=== PATIENT | male | born 1960 | race Caucasian/White ===

== ENCOUNTER → 2016-09-24 | Outpatient (CLI) | payer BC ==
--- NOTE | 2016-09-24 12:24 | RAD ---
HISTORY: Lumbosacral neuritis Study: AP and lateral lumbar spine, flexion, extension views Comparison: March 08, 2015 Findings: The patient is status post L5-S1 fusion with posterior hardware present. There is slight anterolisth esis L4 on L5 when the patient is in the neutral position. This increases slightly with for flexion and decreases slightly with extension suggesting some instability. The alignment is otherwise normal . Degenerative disc disease is present at all levels. Anterior spondylosis is present at all levels. Diffuse bilateral facet degenerative joint disease is present. The pedicles are intact. The SI join ts are normal. IMPRESSION: Postsurgical changes at L5-S1 as described Degenerative disc disease involving all levels to some extent Slight anterolisthesis L4 on L5 secondary to facet degenerative joint disease and degenerative disc disease and demonstrating slight instability as described above Reported By:
--- NOTE | 2016-09-24 14:23 | CT ---
HISTORY: Low back pain, left radiculopathy Study: MRI lumbar spine without contrast Comparison: None Technique: Axial non contrast images with coronal and sagittal reformats. Dose reduction procedures were used with MA/kv adjusted for body size. Findings: The patient is status post L5-S1 posterior fusion with hardware present. There is mild anterolisthes is L4 on L5. The alignment is otherwise normal. Diffuse spondylosis is present in the upper and mid lumbar spine. The pedicles, spinous processes, and posterior elements are intact with the exception of what appears to be a left laminectomy at L4-5. Those portions of the SI joints and sacrum visuali zed were within normal limits. The disc levels were evaluated as follows: L1-2 level: There is disc degeneration with mild broad-based disc bulging which effaces the thecal s ac and contributes along with facet arthropathy to mild lateral recess narrowing bilaterally. L2-3 level: There is disc degeneration and broad-based disc bulging which effaces the thecal sac and contributes along with mild facet arthropathy to lateral recess and foraminal narrowing bilaterally . L3-4 level: There is disc degeneration with broad-based disc protrusion which effaces the thecal sac and contributes along with mild facet arthropathy and spondylitic change to significant lateral rec ess and foraminal narrowing bilaterally slightly worse on the right than the left L4-5 level: There is disc degeneration with anterolisthesis L4 on L5. The anterolisthesis and broad- based disc protrusion contributes along with ligamentous hypertrophy and facet arthropathy to a sign ificant spinal stenosis with marked lateral recess and foraminal narrowing bilaterally. L5-S1 level: Status post posterior fusion. Mild broad-based disk bulging effaces the thecal sac and contributes along with facet arthropathy and spondylitic change to lateral recess and foraminal narr owing of a significant degree bilaterally. IMPRESSION: As above Reported By:
== END | disposition home or self-care (01) | DRG 552 ==
LOC: RAD 10:40
PROVIDERS: ATTEND Neurological Surgery
DX: M51.26 Other intervertebral disc displacement, lumbar region (principal); M54.16 Radiculopathy, lumbar region
CPT/HCPCS: 72120; 72131

== ENCOUNTER → 2016-11-21 | Outpatient (CLI) | payer BC ==
--- NOTE | 2016-11-21 15:26 | US ---
HISTORY: Right renal lesion Study: Bilateral renal sonogram Comparison: None available Technique: Multiple grayscale sonographic images were obtained. Findings: The right kidney measured 12 centimeters in length. The left kidney measured 12 centimeters in lengt h. Cortical thickness and cortical echogenicity were normal bilaterally. No solid masses, hydronephr osis, stones, or perinephric fluid collections were identified. There are 2 benign renal cysts prese nt measuring 2.7 and 3.4 centimeters in diameter. Smaller benign cortical cysts are present on the l eft. IMPRESSION: Bilateral multiple benign renal cortical cysts. Reported By:
== END | disposition home or self-care (01) ==
LOC: RAD 14:01
PROVIDERS: ATTEND Specialist
DX: N28.89 Other specified disorders of kidney and ureter (principal); N28.1 Cyst of kidney, acquired
CPT/HCPCS: 76770

== ENCOUNTER 2020-01-24 11:50 | Observation (INO) ==
[2020-01-24 15:40] LABS: BASOPHILS % (AUTO) 0.3 % (0.2-1.0); EOSINOPHILS % (AUTO) 0.3 % (0.9-2.9); HEMATOCRIT 38.3 % (42.0-54.0); HEMOGLOBIN 13.1 g/dL (13.5-18.0); LYMPHOCYTES # (AUTO) 0.8 X10^3/uL (1.3-2.9); LYMPHOCYTES % (AUTO) 14.9 % (21.0-51.0); MEAN CORPUSCULAR HEMOGLOBIN 33.7 pg (27.0-34.0); MEAN CORPUSCULAR HGB CONC 34.3 g/dL (33.0-35.0); MEAN CORPUSCULAR VOLUME 98.3 fL (80.0-100.0); MEAN PLATELET VOLUME 8.5 fL (7.4-11.0); MONOCYTES # (AUTO) 0.6 x10^3/uL (0.3-0.8); MONOCYTES % (AUTO) 10.3 % (0.0-13.0); NEUTROPHILS % (AUTO) 74.2 % (42.0-75.0); PLATELET COUNT 157 X10^3/uL (150.0-450.0); RED CELL DISTRIBUTION WIDTH 12.5 % (11.6-16.5); WHITE BLOOD COUNT 5.4 X10^3/uL (3.6-10.0)
[2020-01-24 15:51] LABS: ALANINE AMINOTRANSFERASE 111 Units/L (12-78); ALBUMIN 3.6 g/dL (3.4-5.0); ALKALINE PHOSPHATASE 59 Units/L (46-116); ASPARTATE AMINO TRANSFERASE 138 Units/L (15-37); BLOOD UREA NITROGEN 22 mg/dL (7-18); CARBON DIOXIDE 28.3 mmol/L (21-32); CHLORIDE 96 mmol/L (98-107); COR NA(FOR HYPERGLY) 135 mmol/L (136-145); CREATININE 1.35 mg/dL (0.70-1.30); SODIUM 134 mmol/L (136-145); TOTAL PROTEIN 7.2 g/dL (6.4-8.2); eGFR NON BLACK RACES 58 (>60)
[2020-01-24] MEDS ORDERED: PROTONIX INJ 40 MG VIAL ONE (16:17)
[2020-01-24] MEDS ORDERED: NS 1000 ML 1,000 ML ONE (16:17)
[2020-01-24] MEDS: NS 1000 ML 1,000 ML IV ONE ×2 (16:22→17:39)
[2020-01-24] MEDS: PROTONIX INJ 40 MG VIAL IVP SCH ×2 (16:22→22:05)
--- NOTE | 2020-01-24 16:29 | RAD ---
HISTORYABDOMINAL PAIN, N/V BACK SURGERYSTUDYKUBCOMPARISONNoneFINDINGSEvaluation of the abdomen demonstrates a nonspecific bowel gas p attern. Portions of the kidneys are obscured by overlying bowel content. Calcifications within the pe lvis may reflect phleboliths however distal ureteral stones cannot entirely be excluded. Postoperativ e changes of the lumbar spine are noted.IMPRESSIONNonspecific bowel gas pattern.Electronically signed by: ROEL QUIROGA (Jan 24, 2020 16:28:48)
[2020-01-24 16:39] LABS: BILIRUBIN,URINE NEGATIVE (NEGATIVE); BLOOD/HEMOGLOBIN,URINE NEGATIVE (NEGATIVE); GLUCOSE, URINE NEGATIVE (NEGATIVE); KETONES,URINE 3+ (NEGATIVE); LEUKOCYTE ESTERASE ,URINE NEGATIVE (NEGATIVE); NITRITES,URINE NEGATIVE (NEGATIVE); PROTEIN,URINE 1+ (NEGATIVE); UROBILINOGEN,URINE NORMAL (NORMAL)
[2020-01-24 16:49] LABS: APPEARANCE,URINE CLEAR (CLEAR); COLOR,URINE YELLOW (YELLOW)
[2020-01-24 16:50] LABS: BACTERIA,URINE NEGATIVE /HPF (NEGATIVE); RBC,URINE NONE SEEN /HPF (0-3); SQUAMOUS EPITHELIAL CELL,UR RARE /HPF (NEGATIVE)
[2020-01-24 16:51] LABS: MUCUS,URINE FEW /HPF (NEGATIVE)
[2020-01-24] MEDS ORDERED: LEVSIN/MAALOX/LIDOC VISC ONE (16:57)
[2020-01-24] MEDS ORDERED: XANAX PO PRN (17:24)
[2020-01-24] MEDS: LEVSIN/MAALOX/LIDOC VISC PO SCH ×2 (17:38→21:17)
[2020-01-24 19:02] VITALS: BMI 24.9
[2020-01-24 19:05] LABS: CKMB % 1.2 % (<4); TROPONIN I 0.02 ng/mL (0-1.5)
[2020-01-24 19:08] LABS: CREATINE KINASE MB 4.6 ng/mL (0-4.0)
[2020-01-24] MEDS ORDERED: PEPCID 20 MG IV PREMIX* 20 MG/50 ML BAG IV ONE (19:54)
[2020-01-24] MEDS: PEPCID 20 MG IV PREMIX* 20 MG/50 ML BAG IV SCH (21:17)
[2020-01-25] MEDS ORDERED: NS 1000 ML 1,000 ML ONE ×2 (02:52→14:41)
[2020-01-25 02:57] LABS: CKMB % 1.3 % (<4); CREATINE KINASE MB 3.7 ng/mL (0-4.0); TROPONIN I 0.05 ng/mL (0-1.5)
[2020-01-25 06:35] LABS: BASOPHILS % (AUTO) 0.4 % (0.2-1.0); EOSINOPHILS % (AUTO) 1.1 % (0.9-2.9); HEMATOCRIT 35.8 % (42.0-54.0); HEMOGLOBIN 12.1 g/dL (13.5-18.0); LYMPHOCYTES # (AUTO) 0.6 X10^3/uL (1.3-2.9); LYMPHOCYTES % (AUTO) 13.2 % (21.0-51.0); MEAN CORPUSCULAR HEMOGLOBIN 33.5 pg (27.0-34.0); MEAN CORPUSCULAR HGB CONC 33.9 g/dL (33.0-35.0); MEAN CORPUSCULAR VOLUME 98.8 fL (80.0-100.0); MEAN PLATELET VOLUME 8.3 fL (7.4-11.0); MONOCYTES # (AUTO) 0.4 x10^3/uL (0.3-0.8); MONOCYTES % (AUTO) 9.8 % (0.0-13.0); NEUTROPHILS # (AUTO) 3.4 x10^3/uL (2.2-4.8); NEUTROPHILS % (AUTO) 75.5 % (42.0-75.0); PLATELET COUNT 132 X10^3/uL (150.0-450.0); RED BLOOD COUNT 3.62 X10^6/uL (4.7-6.0); RED CELL DISTRIBUTION WIDTH 12.6 % (11.6-16.5); WHITE BLOOD COUNT 4.5 X10^3/uL (3.6-10.0)
[2020-01-25 06:50] LABS: ALANINE AMINOTRANSFERASE 91 Units/L (12-78); ALBUMIN 3.2 g/dL (3.4-5.0); ALKALINE PHOSPHATASE 49 Units/L (46-116); ASPARTATE AMINO TRANSFERASE 102 Units/L (15-37); BLOOD UREA NITROGEN 23 mg/dL (7-18); CALCIUM 9.5 mg/dL (8.5-10.1); CARBON DIOXIDE 28.1 mmol/L (21-32); CHLORIDE 101 mmol/L (98-107); COR CA(FOR HYPOALB) 10.1 mg/dL (8.5-10.1); CREATININE 1.34 mg/dL (0.70-1.30); SODIUM 137 mmol/L (136-145); TOTAL PROTEIN 6.4 g/dL (6.4-8.2); eGFR NON BLACK RACES 58 (>60)
[2020-01-25] MEDS: PEPCID 20 MG IV PREMIX* 20 MG/50 ML BAG IV SCH (08:17)
[2020-01-25] MEDS: LEVSIN/MAALOX/LIDOC VISC PO SCH ×3 (08:18→15:40)
[2020-01-25] MEDS: PROTONIX INJ 40 MG VIAL IVP SCH (08:18)
[2020-01-25] MEDS ORDERED: ZOFRAN INJ 4 MG VIAL IVP PRN (10:39)
--- NOTE | 2020-01-25 10:43 | DR.H&P ---
H&P - History & Physical for Day of: H&P Date: 01/24/20 - Chief Complaint Chief Complaint: SEVERE EPIGASTRIC ABDOMINAL PAIN, INTRACTABLE NAUSEA AND VOMITING, INTRACTABLE HICCUPS, MELANOTIC STOOLS - History of Present Illness History of Present Illness: SEVERE EPIGASTRIC ABDOMINAL PAIN, INTRACTABLE NAUSEA AND VOMITING, INTRACTABLE HICCUPS, MELANOTIC STOOLS - Past Medical History Past Medical History: GERD, Hypertension - Past Surgical History Surgical History: Joint Replacement, Ortho Surgery - Family History Family Medical History: Cancer, Hypertension - Social History Does patient currently use any type of tobacco product: No Have you used tobacco products in the last 12 months: Yes Type of Tobacco Use: Smokeless Does any household member use tobacco: No Alcohol Use: None Drug Use: None - Medications Home Medications: No Known Drug Allergies Allergy (Verified 01/24/20 16:30) CONTINUE taking the following medications aspirin 325 mg PO DAILY 01/24/20 [History] fexofenadine 180 mg PO HS 01/24/20 [History] fluticasone propionate 2 spray INTRANASAL BID 01/24/20 [History] gabapentin 300 mg PO TID 01/24/20 [History] losartan 100 mg PO DAILY 01/24/20 [History] kx-zhop-tstpv-lycopene-ginkgo [One Daily For Men 50+ Advanced] 1 tab PO DAILY 01/24/20 [History] quinapril-hydrochlorothiazide 1 tab PO DAILY 01/24/20 [History] simvastatin 20 mg PO HS 01/24/20 [History] thioridazine 25 mg PO BID 01/24/20 [History] - Review of Systems Constitutional: See HPI, Weakness, Malaise, Other (WEIGHT LOSS ) Eyes: No Symptoms Reported ENT: No Symptoms Reported Respiratory: No Symptoms Reported Cardiovascular: No Symptoms Reported Gastrointestinal: See HPI, Nausea, Vomiting, Abdominal Pain, Melena Genitourinary: No Symptoms Reported Musculoskeletal: No Symptoms Reported Skin: No Symptoms Reported Neurological: Weakness - Physical Exam Vital Signs: Temperature 98.1 F Pulse Rate [Left Brachial] 78 Respiratory Rate 20 Blood Pressure [Left Arm] 147/86 O2 Sat by Pulse Oximetry 99 Oriented: Normal Eyes: Normal Ear: Normal Nose: Normal Throat: Normal Respiratory: Diminished Throughout Cardiovascular: Normal : Normal Auscultation: Bowel Sounds: Normal Palpation: Normal Tenderness: Epigastric, Moderate. negative: Rebound, Guarding, Rigidity Skin: Normal Musculoskeletal: Normal Psychiatric: Normal Mood Description: Calm Affect: Normal Speech Pattern: Clear - Assessment/Plan (1) Epigastric pain Status: Acute Plan: ADMIT, PEPCID 20MG IV Q12H, PROTONIX 40MG IV Q12H, GI COCKTAIL 30ML PO QID, ZOFRAN 4MG IV Q4H PRN NAUSEA, AND XANAX 0.5MG TID PRN, OBTAIN ABDOMEN/PELVIS CT, OBTAIN LIVER US, HEPATITIS AND HEMOCHROMATOSIS PANEL (2) Intractable nausea and vomiting Status: Acute (3) Intractable hiccups Status: Acute (4) Complaint of melena Status: Acute (5) Weight loss, non-intentional Status: Acute - Allergies Allergies/Adverse Reactions: Allergies Allergy/AdvReac Type Severity Reaction Status Date / Time No Known Drug Allergies Allergy Verified 01/24/20 16:30
[2020-01-25 11:53] LABS: CKMB % 1.5 % (<4); CREATINE KINASE 235 Units/L (39-308); CREATINE KINASE MB 3.4 ng/mL (0-4.0); TROPONIN I < 0.02 ng/mL (0-1.5)
[2020-01-25] MEDS ORDERED: PATIENT'S HOME MEDICATION PO SCH (12:30)
--- NOTE | 2020-01-25 13:45 | US ---
HISTORYABD PAINSTUDYUltrasound of the liver and gallbladder and right upper quadrantCOMPARISONNoneFINDINGSThe right lobe of the liver measures 16.62 cm sagittal length without mass. There is fine increased echogenicity compatible with diffuse fatty infiltration. There is appropriate flow in the hepatic veins. The portal vein measures 15 .2 mm diameter. There is hepatopetal flow in the portal vein.The gallbladder is normal in size without wall thickening or stone or sludge. The common hepatic duct measures 3.7 mm diameter.The right kidney measures 12.94 x 5.86 by 5.2 cm with cortical thickness of 1.84 cm and a resistive index of 0.7. There is no right hydronephrosis. There are 2 hypoechoic rounded partially exophytic masses off the upper pole. The largest measures 1.85 cm diameter and the next largest measures 1.5 cm. Low level internal ankles are displayed. There is some acoustic enhancement.There is no free fluid. There is no aortic aneurysm.IMPRESSIONMildly dilated portal veins suggesting portal hypertension.Normal ultrasound of the gallbladderHypoechoic structures in the upper pole of the right kidney likely representing simple cysts.Electronically signed by: GILMA JERRY (Jan 25, 2020 13:44:05)
[2020-01-25] MEDS ORDERED: ATIVAN INJ 2 MG VIAL IVP ONE (14:00)
[2020-01-25] MEDS ORDERED: ATIVAN INJ 2 MG VIAL ONE (14:04)
[2020-01-25 15:39] VITALS: BP 147/83
--- NOTE | 2020-01-25 16:19 | CT ---
HISTORYN/V, ABD PAINSTUDYABDOMEN/PELVIS WITH CONCOMPARISONUltrasound same dayTECHNIQUEMultiple axial images of the abdomen and pelvis were obtained from the lung bases to the pubic symphysis after the administration of IV contrast. Dose reduction techniques including Automated Exposure Control (AEC) and adjustment of mA and kV were utilized.FINDINGSThe visualized portions of the lung bases are unremarkable . The liver demonstrates probable diffuse fatty infiltration. Again there is prominence of the portal vein measuring 15 mm which may be due to portal venous hypertension. There is no evidence for any thrombus. Small renal cysts are noted bilaterally. The solid organs are otherwise unremarkable in their contrast appearance.. The gallbladder is unremarkable in its CT appearance . No significant mesenteric lymphadenopathy or stranding can be observed. No free fluid or free air is seen within the abdomen. No bowel wall thickening or bowel dilatation is present. The colon is unremarkable. Specifically, there is no diverticulosis noted within the sigmoid colon. The appendix is normal. The urinary bladder is grossly unremarkable. The bony structures demonstrate degenerative and postsurgical changes of the spine.IMPRESSIONProbable fatty infiltration with some mild dilatation of the portal vein which may be on the basis of portal venous hypertension.Electronically signed by: FUNMI DOUGHERTY (Jan 25, 2020 16:18:24)
[2020-01-28 06:47] LABS: HEPATITIS B SURFACE ANTIGEN Negative (Negative)
[2020-02-02 13:16] LABS: C282Y NEGATIVE; H63D NEGATIVE; S65C NEGATIVE
== END 2020-01-25 15:55 | disposition home or self-care (01) ==
LOC: OBS → MED/SURG 16:29
PROVIDERS: ADMIT Internal Medicine; ATTEND Internal Medicine
DX: R10.13 Epigastric pain; R11.2 Nausea with vomiting, unspecified; K92.1 Melena; I95.89 Other hypotension; R06.6 Hiccough; R94.31 Abnormal electrocardiogram [ECG] [EKG]; Z20.828 Contact with and (suspected) exposure to other viral communicable diseases; R63.4 Abnormal weight loss; R97.0 Elevated carcinoembryonic antigen [CEA]; R10.84 Generalized abdominal pain

== ENCOUNTER 2023-04-25 15:18 | Inpatient (IN) ==
[2023-04-25] MEDS ORDERED: NS 1,000 ML IV 1,000 ML ONE ×3 (15:23→18:29)
[2023-04-25] MEDS ORDERED: NS 1,000 ML IV 1,000 ML IV ONE ×3 (15:31→18:28)
--- NOTE | 2023-04-25 15:38 | DR.GENAD ---
HPI Time Seen Time Seen by Provider: 04/25/23 15:38 Complaint/Symptoms Chief Complaint Doctors Comments: 62-year-old male brought in for evaluation. Patient having diarrhea last p.m., 9 episodes. Has had poor p.o. intake, has still been drinking alcohol. He is on a daily basis, heavily.. Was sent in for outpatient labs, found to have acute kidney injury, with a creatinine of 14, BUN of 78. Never had problems with her kidneys before. He states he is still urinating. He denies fever, chills, upper respiratory symptoms. Having abdominal pain, worse on the left side. Sharp, does not radiate. Patient little tremulous, did take a drink this a.m.. COVID-19 Coronavirus risk:travel/contact w/high risk person: No Has patient experienced Coronavirus symptoms: No Nurses notes reviewed Nurses Notes Review: Yes Source History Provided: Patient Mode of Arrival Mode of Arrival: Wheelchair PMH PMH Past Medical History: GERD and Hypertension Past Surgical History: Yes Surgical History: Joint Replacement and Ortho Surgery Family History Family Medical History: Cancer and Hypertension Social History Does patient currently use any type of tobacco product: No Alcohol Use: Heavy and DAILY Do you use any recreational Drugs:: No Travel Risk Coronavirus risk:travel/contact w/high risk person: No Has patient experienced Coronavirus symptoms: No ROS Review of Systems Constitutional: Weakness Eyes: No Symptoms Reported ENTM: No Symptoms Reported Respiratoy: No Symptoms Reported Cardiovascular: No Symptoms Reported Gastrointestinal/Abdominal: Abdominal Pain and Diarrhea Genitourinary: No Symptoms Reported Neurological: Weakness Musculoskeletal: No Symptoms Reported Integumentary: No Symptoms Reported Hematologic/Lymphatic: No Symptoms Reported All Other Systems: Reviewed and Negative PE Vital Signs Vitals: Vital Signs Temperature 98.2 F Pulse Rate 121 Respiratory Rate 36 Blood Pressure 174/97 O2 Sat by Pulse Oximetry 97 General General Appearance: Alert, In No Apparent Distress and Other (+ tremulous) Eyes Eye exam: PERRL and EOMI ENT ENT Exam: Normal Oropharynx and Mucous Membranes Moist Neck Neck Exam: Normal Inspection and Full ROM Respiratory Respiratory Exam: Normal Lung Sounds Bilat; negative Accessory Muscle Use or Respiratory Distress Cardiovascular Cardiovascular Exam: Regular Rate, Normal Rhythm, Tachycardia and Normal Heart Sounds Abdominal Exam Abdominal Exam: Normal Bowel Sounds, Soft and Tenderness (L side, no guarding or rebound.) Extremities Extremities Exam: Normal Inspection and Full ROM Neurologic Neurological Exam: Alert, Oriented X3 and CN II-XII Intact; negative Motor Sensory Deficit Skin Skin Exam: Warm and Dry COURSE Treatment Treatment: 8-year-old male with history of heavy EtOH usage, presents with acute renal injury. Has had poor p.o. intake, probably related to his alcohol usage. He developed diarrhea last p.m., has had about 9 episodes. We will repeat labs, start IV fluids. 1635 -BUN 79, creatinine 14.4 with EGFR of 3 bicarb is low at 15. PTH is only 19. CBC acceptable except for low platelets to 82,000. He has an MCV of 104. Patient given IV Ativan here. Will give additional IV fluids. Will obtain an ABG to evaluate his acidosis. His physician, Dr. Monique, called in to give a heads up on this patient, and would like him transferred to a facility with nephrology services. We will attempt transfer after obtaining studies. 1824 -labs, for the acute renal injury-BUN 79, creatinine 4.5. He also has markedly elevated lipase at 1852 bicarb low at 12.6. ABG obtained did acidotic with a pH of 7.27. Alcohol level only [address] abdomen/pelvis shows bilateral perinephric streaky changes, prostamegaly, some bladder wall thickening. Pancreas appears normal per radiology. Second liter of IV normal saline, and additional Ativan 1 mg. 1955 -discussed with Dr. Claudio, on-call for medicine tonight. He will admit the patient here tonight for continue IV hydration, does not appear to need acute dialysis. He will transfer to nephrology tomorrow if needed. [facility] Labs Reviewed 04/25/23 15:40 04/25/23 15:40 Laboratory: WBC 10.3 X10^3/uL (3.6-10.0) H 04/25/23 15:40 RBC 2.87 X10^6/uL (4.7-6.0) L 04/25/23 15:40 Hgb 10.0 g/dL (13.5-18.0) L 04/25/23 15:40 Hct 29.9 % (42.0-54.0) L 04/25/23 15:40 MCV 104.3 fL (80.0-100.0) H 04/25/23 15:40 MCH 35.0 pg (27.0-34.0) H 04/25/23 15:40 MCHC 33.6 g/dL (33.0-35.0) 04/25/23 15:40 RDW 15.8 % (11.6-16.5) 04/25/23 15:40 Plt Count 82 X10^3/uL (150.0-450.0) L 04/25/23 15:40 Plt Count Comment Decreased (ADEQUATE) 04/25/23 15:40 MPV 8.1 fL (7.4-11.0) 04/25/23 15:40 Neut % (Auto) 90.9 % (42.0-75.0) H 04/25/23 15:40 Lymph % (Auto) 3.0 % (21.0-51.0) L 04/25/23 15:40 [place] % (Auto) 5.8 % (0.0-13.0) 04/25/23 15:40 Eos % (Auto) 0.0 % (0.9-2.9) L 04/25/23 15:40 Baso % (Auto) 0.3 % (0.2-1.0) 04/25/23 15:40 Neut # (Auto) 9.4 x10^3/uL (2.2-4.8) H 04/25/23 15:40 Lymph # (Auto) 0.3 X10^3/uL (1.3-2.9) L 04/25/23 15:40 [place] # (Auto) 0.6 x10^3/uL (0.3-0.8) 04/25/23 15:40 Eos # (Auto) 0.0 x10^3/uL (0.0-0.2) 04/25/23 15:40 Baso # (Auto) 0.0 X10^3/uL (0.0-0.1) 04/25/23 15:40 Absolute Nucleated RBC 0.0 /100WBC 04/25/23 15:40 Total Counted 100 04/25/23 15:40 Neutrophils % (Manual) 89 % (39-76) H 04/25/23 15:40 Lymphocytes % (Manual) 8 % (13-43) L 04/25/23 15:40 Monocytes % (Manual) 3 % (4-9) L 04/25/23 15:40 Nucleated RBCs 2 04/25/23 15:40 Plt Morphology Comment Normal (NORMAL) 04/25/23 15:40 RBC Morphology Normal (NORMAL) 04/25/23 15:40 Sample Site Rr 04/25/23 16:26 ABG pH 7.270 (7.35-7.45) L 04/25/23 16:26 ABG pCO2 28.0 mmHg (35.0-45.0) L 04/25/23 16:26 ABG pO2 92.0 mmHg (80.0-100.0) 04/25/23 16: ABG HCO3 12.9 mmol/L (22-26) L* 04/25/23 16: ABG O2 Saturation 96.0 % (90-100) 04/25/23 16: ABG Base Excess -12.6 mmol/L (-2.0-2.0) L 04/25/23 16:26 Juan Test Pos 04/25/23 16:26 FiO2 21.0 04/25/23 16:26 Blood Gas Comments Autumn well. sd 04/25/23 16:26 Sodium 131 mmol/L (136-145) L 04/25/23 15:40 Corrected Sodium TNP 04/25/23 15:40 Potassium 5.5 mmol/L (3.5-5.1) H 04/25/23 15:40 Chloride 96 mmol/L (98-107) L 04/25/23 15:40 Carbon Dioxide 12.6 mmol/L (21-32) L* 04/25/23 15:40 BUN 79 mg/dL (7-18) H 04/25/23 15:40 Creatinine 14.47 mg/dL (0.70-1.30) H 04/25/23 15:40 Est GFR (MDRD) Af Amer 4 (>60) L 04/25/23 15:40 Est GFR (MDRD) Non-Af 4 (>60) L 04/25/23 15:40 Glucose 97 mg/dL (65-99) 04/25/23 15:40 Calcium 6.6 mg/dL (8.5-10.1) L 04/25/23 15:40 Corrected Calcium 7.2 mg/dL (8.5-10.1) L 04/25/23 15:40 Magnesium 1.8 mg/dL (2.0-2.9) L 04/25/23 15:39 Total Bilirubin 0.50 mg/dL (0.2-1.0) 04/25/23 15:40 AST 142 Units/L (15-37) H 04/25/23 15:40 ALT 54 Units/L (12-78) 04/25/23 15:40 Alkaline Phosphatase 61 Units/L (46-116) 04/25/23 15:40 Total Protein 7.1 g/dL (6.4-8.2) 04/25/23 15:40 Albumin 3.2 g/dL (3.4-5.0) L 04/25/23 15:40 Globulin 3.9 g/dL (2.5-4.5) 04/25/23 15:40 Albumin/Globulin Ratio 0.8 Ratio (1.1-2.1) L 04/25/23 15:40 Lipase 1852 Units/L (16-77) H 04/25/23 15:40 Vitamin B12 > 2000 pg/mL (193-986) H 04/25/23 15:39 Folate 3.5 ng/mL (>8.6) L 04/25/23 15:39 Specimen Type Clean catch urine 04/25/23 16:41 Urine Color Yellow (YELLOW) 04/25/23 16:41 Urine Appearance Slightly hazy (CLEAR) 04/25/23 16:41 Urine pH 6.0 (5.0 - 8.0) 04/25/23 16:41 Ur Specific [place] 1.015 (1.000-1.030) 04/25/23 16:41 Urine Protein 3+ (NEGATIVE) 04/25/23 16:41 Urine Glucose (UA) Negative (NEGATIVE) 04/25/23 16:41 Urine Ketones 1+ (NEGATIVE) 04/25/23 16:41 Urine Blood 5+ (NEGATIVE) 04/25/23 16:41 Urine Nitrite Negative (NEGATIVE) 04/25/23 16:41 Urine Bilirubin Negative (NEGATIVE) 04/25/23 16:41 Urine Urobilinogen Normal (NORMAL) 04/25/23 16:41 Ur Leukocyte Esterase 1+ (NEGATIVE) 04/25/23 16:41 Urine RBC 5-10 /HPF (0-3) A 04/25/23 16:41 Urine WBC 3-5 /HPF (0-5) 04/25/23 16:41 Ur Squamous Epith Cells Rare /HPF (NEGATIVE) 04/25/23 16:41 Amorphous Sediment 1+ /HPF (NEGATIVE) 04/25/23 16:41 Urine Bacteria Negative /HPF (NEGATIVE) 04/25/23 16:41 Coarse Granular Casts Few /HPF (NEGATIVE) 04/25/23 16:41 Urine Mucus Few /HPF (NEGATIVE) 04/25/23 16:41 Ur Culture Indicated? No/not indicated 04/25/23 16:41 Ethyl Alcohol mg/dL 19 mg/dL (0-19.9) 04/25/23 15:40 Ethyl Alcohol mg/dL Cancelled 04/25/23 15:40 Opioid Opioid Risk Tool Age (Eddie box if 16-45): No History of Preadolescent Sexual Abuse: No Total: 0 Total Score Risk Category: Low Risk Copyright: Ki CHEEMA predicting aberrant behaviors Discharge Plan Diagnosis Discharge Problem: Acute nontraumatic kidney injury, Acute pancreatitis, Alcohol abuse Discharge Plan Patient Disposition: 09 ADMITTED INPATIENT Condition: Stable Prescriptions: No Action thioridazine 25 mg tablet 25 mg PO BID aspirin 325 mg Tablet 325 mg PO DAILY fexofenadine 180 mg tablet 180 mg PO HS Patient Comments: TK 1 T PO QD simvastatin 20 mg tablet 20 mg PO HS gabapentin 300 mg capsule 300 mg PO TID quinapril-hydrochlorothiazide 20-12.5 mg Tablet 1 tab PO DAILY losartan 100 mg tablet 100 mg PO DAILY fluticasone propionate 50 mcg/actuation spray,suspension 2 spray INTRANASAL BID One Daily For Men 50 Plus Adv 400-600-120 mcg-mcg-mg Tablet 1 tab PO DAILY ondansetron HCl [Zofran] 8 mg Tablet 8 mg PO Q8H PRN (Reason: Nausea) Qty: 30 1RF famotidine [Pepcid] 40 MG tablet 40 mg PO BID Qty: 60 3RF Rx Instructions: TAKE ONE TABLET TWICE A DAY pantoprazole [pantoprazole] 40 MG tablet,delayed release (DR/EC) 40 mg PO BID Qty: 60 3RF Rx Instructions: TAKE ONE TABLET TWICE A DAY hyoscyamine sulfate 30 ML elixir 15 ml PO TID PRNQty: 240 1RF Rx Instructions: TAKE ONE TABLESPOON THREE TIMES A DAY NEEDED FOR ABDOMINAL PAIN dicyclomine 20 mg Tablet 20 mg PO QID Qty: 30 0RF Rx Instructions: TAKE ONE TABLET FOUR TIMES A DAY NEEDED FOR ABDOMINAL PAIN alprazolam 0.5 mg Tablet 0.5 mg PO BID MDD 2 PRNQty: 30 0RF Rx Instructions: TAKE ONE TABLET TWICE A DAY NEEDED FOR ANXIETY Health Concerns: Post Hospitalization: new medications and changes needed to prevent readmission or further decline. Pt educated and given instructions on all concerns. Plan of Treatment: Continue with present treatment and follow up plan. Pt is to keep follow up appointment as instructed and take medications as ordered. Orders to Discharge Patient Discharge Orders: Transfer (Routine); Ordered 04/25/23 Ordered By: Neptali Duggan Follow ups/Referrals Follow ups/Referrals: Johnathon Monique [Primary Care Provider] - 3 days
[2023-04-25 15:47] LABS: HEMATOCRIT 29.9 % (42.0-54.0); LYMPHOCYTES # (AUTO) 0.3 X10^3/uL (1.3-2.9); MEAN CORPUSCULAR HGB CONC 33.6 g/dL (33.0-35.0); MONOCYTES # (AUTO) 0.6 x10^3/uL (0.3-0.8); RED BLOOD COUNT 2.87 X10^6/uL (4.7-6.0)
[2023-04-25 15:54] LABS: BASOPHILS % (AUTO) 0.3 % (0.2-1.0); MEAN CORPUSCULAR VOLUME 104.3 fL (80.0-100.0); MEAN PLATELET VOLUME 8.1 fL (7.4-11.0); MONOCYTES % (AUTO) 5.8 % (0.0-13.0); NEUTROPHILS # (AUTO) 9.4 x10^3/uL (2.2-4.8); NEUTROPHILS % (AUTO) 90.9 % (42.0-75.0); PLATELET COUNT 82 X10^3/uL (150.0-450.0); RED CELL DISTRIBUTION WIDTH 15.8 % (11.6-16.5); WHITE BLOOD COUNT 10.3 X10^3/uL (3.6-10.0)
[2023-04-25 15:56] LABS: ALANINE AMINOTRANSFERASE 54 Units/L (12-78); ALBUMIN 3.2 g/dL (3.4-5.0); ALKALINE PHOSPHATASE 61 Units/L (46-116); ASPARTATE AMINO TRANSFERASE 142 Units/L (15-37); BLOOD ALCOHOL 19 mg/dL (0-19.9); BLOOD UREA NITROGEN 79 mg/dL (7-18); CALCIUM 6.6 mg/dL (8.5-10.1); CHLORIDE 96 mmol/L (98-107); COR CA(FOR HYPOALB) 7.2 mg/dL (8.5-10.1); CREATININE 14.47 mg/dL (0.70-1.30); GLUCOSE 97 mg/dL (65-99); POTASSIUM 5.5 mmol/L (3.5-5.1); SODIUM 131 mmol/L (136-145); TOTAL PROTEIN 7.1 g/dL (6.4-8.2); eGFR NON BLACK RACES 4 (>60)
[2023-04-25] MEDS ORDERED: ATIVAN INJ 2 MG VIAL IVP STA ×2 (16:30→18:28)
[2023-04-25 16:32] LABS: CARBON DIOXIDE 12.6 mmol/L (21-32); PLATELET MORPHOLOGY COMMENT NORMAL (NORMAL)
[2023-04-25] MEDS ORDERED: ATIVAN INJ 2 MG VIAL ONE ×2 (16:35→18:30)
[2023-04-25 16:46] LABS: ABG BASE EXCESS -12.6 mmol/L (-2.0-2.0)
[2023-04-25 16:51] LABS: ABG ALLEN TEST POS; ABG HCO3 12.9 mmol/L (22-26)
[2023-04-25 16:58] LABS: LIPASE 1852 Units/L (16-77)
[2023-04-25 16:59] LABS: APPEARANCE,URINE SLIGHTLY HAZY (CLEAR); BILIRUBIN,URINE NEGATIVE (NEGATIVE); BLOOD/HEMOGLOBIN,URINE 5+ (NEGATIVE); COLOR,URINE YELLOW (YELLOW); GLUCOSE, URINE NEGATIVE (NEGATIVE); KETONES,URINE 1+ (NEGATIVE); LEUKOCYTE ESTERASE ,URINE 1+ (NEGATIVE); NITRITES,URINE NEGATIVE (NEGATIVE); PROTEIN,URINE 3+ (NEGATIVE); UROBILINOGEN,URINE NORMAL (NORMAL)
[2023-04-25 17:06] LABS: BACTERIA,URINE NEGATIVE /HPF (NEGATIVE); SQUAMOUS EPITHELIAL CELL,UR RARE /HPF (NEGATIVE)
[2023-04-25 17:09] LABS: COARSE GRANULAR CASTS,URINE FEW /HPF (NEGATIVE)
--- NOTE | 2023-04-25 17:51 | CT ---
EXAM: CT ABDOMEN AND PELVIS WITHOUT INTRAVENOUS CONTRASTHISTORY: Abnormal labs. Weakness.TECHNIQUE: Spiral axial CT images are obtained through the abdomen and pelvis without the administration of intravenous contrast. Additional coronal and sagittal reformatted images are reconstructed.DOSIMETRY: Total DLP 331.33 mGycm; CTDI 5.88 mGyCOMPARISON: None available.FINDINGS:GASTROINTESTINAL TRACT: There is no evidence for bowel herniation, bowel obstruction, colitis or diverticulitis. A normal-appearing appendix is seen.GENITOURINARY SYSTEM: Nonspecific bilateral mild perinephric streaky changes, of uncertain etiology and clinical significance. Consider follow-up postcontrast CT if UTI or pyelonephritis is clinically suspected. There are approximately 3.5 cm and 2.7 cm exophytic right middle pole renal cysts. The kidneys are otherwise unremarkable. There is no ureteral calculus or stigmata of obstructive uropathy. There is prostatomegaly (4.9 cm transverse) in keeping with BPH; concomitant occult neoplastic disease not excluded. Mildly thickened appearance of the urinary bladder wall (8.5 mm), presumed sequela of incomplete bladder distention or chronic muscle wall hypertrophy secondary to chronic partial outlet obstruction, but cannot rule out postinflammatory change or cystitis in the appropriate clinical setting. Clinical correlation is advised.CT ABDOMEN: Diffuse hepatic steatosis with borderline hepatomegaly (right lobe measures 17.6 cm CC); rule out nonalcoholic steatosis hepatitis; no focal hepatic mass seen. The spleen, pancreas, adrenal glands, gallbladder, aorta, and inferior vena cava are within normal limits for a noncontrast CT scan. There is no intra-abdominal or retroperitoneal lymphadenopathy, free fluid, or free air seen. No abdominal herniation is noted.CT PELVIS: No pelvic sidewall or inguinal lymphadenopathy is seen. No inguinal herniation is noted. No free fluid or free air is seen.BONES AND JOINTS: There is severe multilevel DDD throughout the distal thoracic and lumbar spine. L4/5: Status post laminectomy and posterior lumbar spine fusion, with pedicle screws and stabilization rods in situ; approximately 6.5 mm (grade 1) spondylolisthesis (fused position). 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 Nonspecific mild bilateral perinephric streaky changes, of uncertain etiology and clinical significance. Consider follow-up postcontrast CT to rule out pyelonephritis if UTI is clinically suspected.2. No evidence for renal stone disease or obstructive uropathy.3. Prostatomegaly (4.9 cm transverse) in keeping with BPH; concomitant occult neoplastic disease not excluded.4. Mildly thickened appearance of the urinary bladder wall (8.5 mm), presumed sequela of incomplete bladder distention or chronic muscle wall hypertrophy secondary to chronic partial outlet obstruction, but cannot rule out postinflammatory change or cystitis in the appropriate clinical setting. Clinical correlation is advised.5. No evidence for acute appendicitis, bowel herniation/obstruction, colitis or diverticulitis seen.6. No free fluid, free air, mass lesions, or lymphadenopathy seen.THIS IS AN ELECTRONICALLY VERIFIED FINAL [id number]/25/2023 5:48 PM - Electronically signed by Carol Garza
[2023-04-25] MEDS ORDERED: CONSULT PHARMACY - POTASSIUM & MAGNESIUM XX SCH (21:17)
[2023-04-25] MEDS: D5 NS 1,000 ML IV 1,000 ML IV SCH (21:40)
[2023-04-25 22:23] VITALS: BMI 26.7
[2023-04-25] MEDS: MAGNESIUM SULFATE 1 GRAM/100 mL PREMIX 1 G/100 ML BAG IV SCH (22:41)
[2023-04-25] MEDS: ATIVAN INJ 2 MG VIAL IVP PRN (22:43)
[2023-04-26] MEDS: MAGNESIUM SULFATE 1 GRAM/100 mL PREMIX 1 G/100 ML BAG IV SCH (00:30)
[2023-04-26] MEDS: ATIVAN INJ 2 MG VIAL IVP PRN ×3 (03:25→12:25)
[2023-04-26 05:08] LABS: BASOPHILS % (AUTO) 0.1 % (0.2-1.0); HEMATOCRIT 27.4 % (42.0-54.0); HEMOGLOBIN 9.1 g/dL (13.5-18.0); LYMPHOCYTES # (AUTO) 0.4 X10^3/uL (1.3-2.9); MEAN CORPUSCULAR HEMOGLOBIN 34.7 pg (27.0-34.0); MEAN CORPUSCULAR HGB CONC 33.1 g/dL (33.0-35.0); MEAN CORPUSCULAR VOLUME 104.9 fL (80.0-100.0); MEAN PLATELET VOLUME 9.4 fL (7.4-11.0); MONOCYTES # (AUTO) 0.5 x10^3/uL (0.3-0.8); MONOCYTES % (AUTO) 8.9 % (0.0-13.0); PLATELET COUNT 67 X10^3/uL (150.0-450.0); RED BLOOD COUNT 2.61 X10^6/uL (4.7-6.0); RED CELL DISTRIBUTION WIDTH 15.7 % (11.6-16.5)
[2023-04-26 05:23] LABS: ALBUMIN 2.6 g/dL (3.4-5.0); CARBON DIOXIDE 15.2 mmol/L (21-32); CREATININE 13.95 mg/dL (0.70-1.30); TOTAL PROTEIN 5.9 g/dL (6.4-8.2)
[2023-04-26 05:40] LABS: COR CA(FOR HYPOALB) 6.9 mg/dL (8.5-10.1)
[2023-04-26 05:45] LABS: CALCIUM 5.8 mg/dL (8.5-10.1); POTASSIUM 5.1 mmol/L (3.5-5.1)
[2023-04-26] MEDS: D5 NS 1,000 ML IV 1,000 ML IV SCH ×2 (05:55→12:26)
[2023-04-26 08:09] LABS: CREATINE KINASE 2065 Units/L (39-308)
[2023-04-26 08:30] LABS: LIPASE 1514 Units/L (16-77)
[2023-04-26] MEDS: NS IV SCH (09:20)
[2023-04-26] MEDS: SODIUM BICARBONATE 8.4% IV SCH (09:20)
[2023-04-26 10:04] LABS: BILIRUBIN,URINE NEGATIVE (NEGATIVE); BLOOD/HEMOGLOBIN,URINE 5+ (NEGATIVE); GLUCOSE, URINE 2+ (NEGATIVE); KETONES,URINE NEGATIVE (NEGATIVE); LEUKOCYTE ESTERASE ,URINE 1+ (NEGATIVE); NITRITES,URINE NEGATIVE (NEGATIVE); PROTEIN,URINE 3+ (NEGATIVE); UROBILINOGEN,URINE NORMAL (NORMAL)
[2023-04-26 10:05] LABS: APPEARANCE,URINE SLIGHTLY HAZY (CLEAR); COLOR,URINE YELLOW (YELLOW)
[2023-04-26] MEDS ORDERED: BUTT CREAM (COMPOUND) ONE (10:25)
--- NOTE | 2023-04-26 11:57 | DR.H&P ---
H&P History & Physical for Day of: H&P Date: 04/25/23 Chief Complaint Chief Complaint: DIARRHEA, ABNROMAL OUTPT LABS Allergies Allergies Allergy/AdvReac Type Severity Reaction Status Date / Time No Known Drug Allergies Allergy Verified 01/24/20 16:30 History of Present Illness History of Present Illness: 62-year-old, White male with history of heavy EtOH usage, presents with acute renal injury. Has had poor p.o. intake. He developed diarrhea last p.m., has had about 9 episodes. We will repeat labs, start IV fluids. BUN 79, creatinine 14.4 with EGFR of 3 bicarb is low at 15. PTH is only 19. CBC acceptable except for low platelets to 82,000. He has an MCV of 104. Patient given IV Ativan here. His physician, Dr. Monique, called in to give a heads up on this patient, and would like him transferred to a facility with nephrology services. We will attempt transfer after obtaining studies. In the ER-labs, for the acute renal injury-BUN 79, creatinine 4.5. He also has markedly elevated lipase at 1852 bicarb low at 12.6. ABG obtained did acidotic with a pH of 7.27. Alcohol level only [address] abdomen/pelvis shows bilateral perinephric streaky changes, prostamegaly, some bladder wall thickening. Pancreas appears normal per radiology. Second liter of IV normal saline, and additional Ativan 1 mg. Pt has PMH of HTN, GERD, Past Medical History Past Medical History: Anxiety, Cirrhosis, COPD and Hypertension Past Surgical History Surgical History: Joint Replacement and Ortho Surgery Family History Family Medical History: Cancer, Heart Failure and Hypertension Social History Does patient currently use any type of tobacco product: No Have you used tobacco products in the last 12 months: No Type of Tobacco Use: None Alcohol Use: DAILY Drug Use: None Medications Home Medications: Home Medications Medication Instructions Recorded Confirmed Type gabapentin 300 mg capsule 300 mg PO TID 01/24/20 04/25/23 History losartan 100 mg tablet 100 mg PO DAILY 01/24/20 04/25/23 History thioridazine 25 mg tablet 50 mg PO 1XD 01/24/20 04/25/23 History diclofenac potassium 50 mg tablet 50 mg PO BID 04/25/23 04/25/23 History milk thistle 200 mg capsule 250 mg PO 1XD 04/25/23 04/25/23 History montelukast 10 mg tablet 10 mg PO QDAY 04/25/23 04/25/23 History omeprazole 20 mg tablet,delayed 20 mg PO QDAY 04/25/23 04/25/23 History release rosuvastatin 20 mg tablet 20 mg PO QPM 04/25/23 04/25/23 History tadalafil 5 mg tablet 5 mg PO QID 04/25/23 04/25/23 History Labs 04/26/23 04:16 04/26/23 04:16 Labs: 04/26/23 08:30 Stool - Final Laboratory WBC 6.0 X10^3/uL (3.6-10.0) 04/26/23 04:16 RBC 2.61 X10^6/uL (4.7-6.0) L 04/26/23 04:16 Hgb 9.1 g/dL (13.5-18.0) L 04/26/23 04:16 Hct 27.4 % (42.0-54.0) L 04/26/23 04:16 MCV 104.9 fL (80.0-100.0) H 04/26/23 04:16 MCH 34.7 pg (27.0-34.0) H 04/26/23 04:16 MCHC 33.1 g/dL (33.0-35.0) 04/26/23 04:16 RDW 15.7 % (11.6-16.5) 04/26/23 04:16 Plt Count 67 X10^3/uL (150.0-450.0) L 04/26/23 04:16 Plt Count Comment Decreased (ADEQUATE) 04/25/23 15:40 MPV 9.4 fL (7.4-11.0) 04/26/23 04:16 Neut % (Auto) 84.0 % (42.0-75.0) H 04/26/23 04:16 Lymph % (Auto) 7.0 % (21.0-51.0) L 04/26/23 04:16 [place] % (Auto) 8.9 % (0.0-13.0) 04/26/23 04:16 Eos % (Auto) 0.0 % (0.9-2.9) L 04/26/23 04:16 Baso % (Auto) 0.1 % (0.2-1.0) L 04/26/23 04:16 Neut # (Auto) 5.0 x10^3/uL (2.2-4.8) H 04/26/23 04:16 Lymph # (Auto) 0.4 X10^3/uL (1.3-2.9) L 04/26/23 04:16 [place] # (Auto) 0.5 x10^3/uL (0.3-0.8) 04/26/23 04:16 Eos # (Auto) 0.0 x10^3/uL (0.0-0.2) 04/26/23 04:16 Baso # (Auto) 0.0 X10^3/uL (0.0-0.1) 04/26/23 04:16 Absolute Nucleated RBC 0.0 /100WBC 04/26/23 04:16 Total Counted 100 04/25/23 15:40 Neutrophils % (Manual) 89 % (39-76) H 04/25/23 15:40 Lymphocytes % (Manual) 8 % (13-43) L 04/25/23 15:40 Monocytes % (Manual) 3 % (4-9) L 04/25/23 15:40 Nucleated RBCs 2 04/25/23 15:40 Plt Morphology Comment Normal (NORMAL) 04/25/23 15:40 RBC Morphology Normal (NORMAL) 04/25/23 15:40 Sample Site Rr 04/25/23 16:26 ABG pH 7.270 (7.35-7.45) L 04/25/23 16:26 ABG pCO2 28.0 mmHg (35.0-45.0) L 04/25/23 16:26 ABG pO2 92.0 mmHg (80.0-100.0) 04/25/23 16:26 ABG HCO3 12.9 mmol/L (22-26) L* 04/25/23 16:26 ABG O2 Saturation 96.0 % (90-100) 04/25/23 16:26 ABG Base Excess -12.6 mmol/L (-2.0-2.0) L 04/25/23 16:26 Juan Test Pos 04/25/23 16:26 A-a Gradient Not Reportable 04/25/23 16:26 FiO2 21.0 04/25/23 16:26 Blood Gas Comments Autumn well. sd 04/25/23 16:26 Sodium 132 mmol/L (136-145) L 04/26/23 04:16 Corrected Sodium 132 mmol/L (136-145) L 04/26/23 04:16 Potassium 5.1 mmol/L (3.5-5.1) 04/26/23 04:16 Chloride 99 mmol/L (98-107) 04/26/23 04:16 Carbon Dioxide 15.2 mmol/L (21-32) L 04/26/23 04:16 BUN 81 mg/dL (7-18) H 04/26/23 04:16 Creatinine 13.95 mg/dL (0.70-1.30) H 04/26/23 04:16 Est GFR (MDRD) Af Amer 5 (>60) L 04/26/23 04:16 Est GFR (MDRD) Non-Af 4 (>60) L 04/26/23 04:16 Glucose 119 mg/dL (65-99) H 04/26/23 04:16 Calcium 5.8 mg/dL (8.5-10.1) L* 04/26/23 04:16 Corrected Calcium 6.9 mg/dL (8.5-10.1) L 04/26/23 04:16 Magnesium 2.3 mg/dL (2.0-2.9) 04/26/23 04:16 Total Bilirubin 0.50 mg/dL (0.2-1.0) 04/26/23 04:16 AST 103 Units/L (15-37) H 04/26/23 04:16 ALT 40 Units/L (12-78) 04/26/23 04:16 Alkaline Phosphatase 51 Units/L (46-116) 04/26/23 04:16 Creatine Kinase 2065 Units/L (39-308) H 04/26/23 04:16 Total Protein 5.9 g/dL (6.4-8.2) L 04/26/23 04:16 Albumin 2.6 g/dL (3.4-5.0) L 04/26/23 04:16 Globulin 3.3 g/dL (2.5-4.5) 04/26/23 04:16 Albumin/Globulin Ratio 0.8 Ratio (1.1-2.1) L 04/26/23 04:16 Lipase 1514 Units/L (16-77) H 04/26/23 04:16 Total PSA 3.44 ng/mL (0.13-4.0) 04/26/23 04:16 Vitamin B12 > 2000 pg/mL (193-986) H 04/25/23 15:39 Folate 3.5 ng/mL (>8.6) L 04/25/23 15:39 Specimen Type Catherized urine 04/26/23 09:50 Urine Color Yellow (YELLOW) 04/26/23 09:50 Urine Appearance Slightly hazy (CLEAR) 04/26/23 09:50 Urine pH 5.0 (5.0 - 8.0) 04/26/23 09:50 Ur Specific [place] 1.015 (1.000-1.030) 04/26/23 09:50 Urine Protein 3+ (NEGATIVE) 04/26/23 09:50 Urine Glucose (UA) 2+ (NEGATIVE) 04/26/23 09:50 Urine Ketones Negative (NEGATIVE) 04/26/23 09:50 Urine Blood 5+ (NEGATIVE) 04/26/23 09:50 Urine Nitrite Negative (NEGATIVE) 04/26/23 09:50 Urine Bilirubin Negative (NEGATIVE) 04/26/23 09:50 Urine Urobilinogen Normal (NORMAL) 04/26/23 09:50 Ur Leukocyte Esterase 1+ (NEGATIVE) 04/26/23 09:50 Urine RBC 5-10 /HPF (0-3) A 04/25/23 16:41 Urine WBC 3-5 /HPF (0-5) 04/25/23 16:41 Ur Squamous Epith Cells Rare /HPF (NEGATIVE) 04/25/23 16:41 Amorphous Sediment 1+ /HPF (NEGATIVE) 04/25/23 16:41 Urine Bacteria Negative /HPF (NEGATIVE) 04/25/23 16:41 Coarse Granular Casts Few /HPF (NEGATIVE) 04/25/23 16:41 Urine Mucus Few /HPF (NEGATIVE) 04/25/23 16:41 Ur Culture Indicated? No/not indicated 04/25/23 16:41 Stl Occult Blood (IFOB) Positive (NEGATIVE) A 04/26/23 08:30 Stool for White Cells Positive (NEGATIVE) A 04/26/23 08:30 Stl C. diff Tox B Gene Positive (NEGATIVE) A 04/26/23 08:30 Stl C. diff [id number] Presumptive negative (NEGATIVE) 04/26/23 08:30 Stool H. pylori Ag Negative (NEGATIVE) 04/26/23 08:30 Ethyl Alcohol mg/dL 19 mg/dL (0-19.9) 04/25/23 15:40 Ethyl Alcohol mg/dL Cancelled 04/25/23 15:40 C. difficile Toxin A&B Positive (NEGATIVE) A 04/26/23 08:30 Review of Systems Constitutional: Weakness Eyes: No Symptoms Reported ENT: No Symptoms Reported Respiratory: Shortness of Breath Cardiovascular: Palpitations Gastrointestinal: Diarrhea Genitourinary: No Symptoms Reported Musculoskeletal: No Symptoms Reported Skin: No Symptoms Reported Neurological: Weakness Physical Exam Vital Signs: Vital Signs Temperature 98.2 F Pulse Rate 99 Pulse Rate 107 Pulse Rate 131 Pulse Rate 108 Pulse Rate 99 Pulse Rate 104 Pulse Rate 101 Pulse Rate 104 Pulse Rate 107 Pulse Rate 104 Pulse Rate 115 Pulse Rate 119 Pulse Rate 124 Pulse Rate 130 Pulse Rate 120 Pulse Rate 113 Pulse Rate 106 Pulse Rate 124 Pulse Rate 108 Pulse Rate 118 Pulse Rate 101 Pulse Rate 95 Pulse Rate 96 Pulse Rate 91 Pulse Rate 96 Pulse Rate 91 Pulse Rate 91 Pulse Rate 93 Pulse Rate 102 Pulse Rate 91 Pulse Rate 95 Pulse Rate 99 Pulse Rate 100 Pulse Rate 109 Respiratory Rate 17 Respiratory Rate 16 Respiratory Rate 26 Respiratory Rate 17 Respiratory Rate 17 Respiratory Rate 16 Respiratory Rate 21 Respiratory Rate 14 Respiratory Rate 15 Respiratory Rate 15 Respiratory Rate 18 Respiratory Rate 28 Respiratory Rate 22 Respiratory Rate 28 Respiratory Rate 19 Respiratory Rate 15 Respiratory Rate 22 Respiratory Rate 17 Respiratory Rate 24 Respiratory Rate 17 Respiratory Rate 20 Respiratory Rate 21 Respiratory Rate 30 Respiratory Rate 23 Respiratory Rate 17 Respiratory Rate 16 Respiratory Rate 23 Respiratory Rate 23 Respiratory Rate 24 Respiratory Rate 21 Respiratory Rate 16 Respiratory Rate 20 Respiratory Rate 20 Blood Pressure 151/98 Blood Pressure 159/73 Blood Pressure 156/84 Blood Pressure 147/82 Blood Pressure 179/91 Blood Pressure 179/91 Blood Pressure 179/91 Blood Pressure 147/85 Blood Pressure 161/89 Blood Pressure 159/90 Blood Pressure 158/86 Blood Pressure 158/86 Blood Pressure 158/86 Blood Pressure 158/86 Blood Pressure 149/78 Blood Pressure 131/83 Blood Pressure 131/83 Blood Pressure 154/91 Blood Pressure 158/76 Blood Pressure 158/76 O2 Sat by Pulse Oximetry 98 O2 Sat by Pulse Oximetry 97 O2 Sat by Pulse Oximetry 99 O2 Sat by Pulse Oximetry 99 O2 Sat by Pulse Oximetry 99 O2 Sat by Pulse Oximetry 99 O2 Sat by Pulse Oximetry 100 O2 Sat by Pulse Oximetry 98 O2 Sat by Pulse Oximetry 99 O2 Sat by Pulse Oximetry 100 O2 Sat by Pulse Oximetry 98 O2 Sat by Pulse Oximetry 99 O2 Sat by Pulse Oximetry 99 O2 Sat by Pulse Oximetry 99 O2 Sat by Pulse Oximetry 99 O2 Sat by Pulse Oximetry 99 O2 Sat by Pulse Oximetry 99 O2 Sat by Pulse Oximetry 98 O2 Sat by Pulse Oximetry 99 O2 Sat by Pulse Oximetry 99 O2 Sat by Pulse Oximetry 99 O2 Sat by Pulse Oximetry 100 O2 Sat by Pulse Oximetry 99 O2 Sat by Pulse Oximetry 99 O2 Sat by Pulse Oximetry 99 O2 Sat by Pulse Oximetry 99 O2 Sat by Pulse Oximetry 99 O2 Sat by Pulse Oximetry 98 O2 Sat by Pulse Oximetry 98 O2 Sat by Pulse Oximetry 99 O2 Sat by Pulse Oximetry 99 O2 Sat by Pulse Oximetry 96 O2 Sat by Pulse Oximetry 98 O2 Sat by Pulse Oximetry 98 Oriented: Normal Eyes: Normal Ear: Normal Nose: Normal Throat: Normal Respiratory: RLL Diminished and LLL Diminished Auscultation: Bowel Sounds: Increased Palpation: Other (diffuse abdominal tenderness ) Tenderness: Normal Skin: Decreased Turgur Musculoskeletal: Motor Deficit Mood Description: Anxious Affect: Anxious Speech Pattern: Clear Assessment/Plan (1) Acute nontraumatic kidney injury: Narrative Support Text: ADMIT, ICU CARDIAC MONITORING BP CONTROL SUPPLEMENTAL O2 IV HYDRATION, STRICT I&OS CT ABD PELVIS OBTAINED IN ER ABG IN ER VERIFY HOME MEDICATIONS Status: Acute (2) Acute pancreatitis: Status: Acute (3) Alcohol abuse: Status: Acute (4) Hypertension: Status: Acute (5) Metabolic acidosis: Status: Acute (6) Rhabdomyolysis: Status: Acute
[2023-04-26] MEDS: BUTT CREAM (COMPOUND) TOP PRN (12:45)
[2023-04-26] MEDS: NS 1,000 ML IV 1,000 ML IV SCH (12:47)
[2023-04-26 14:21] LABS: BLOOD UREA NITROGEN 86 mg/dL (7-18); CARBON DIOXIDE 16.7 mmol/L (21-32); CHLORIDE 100 mmol/L (98-107); CREATININE 13.96 mg/dL (0.70-1.30); GLUCOSE 98 mg/dL (65-99); POTASSIUM 4.7 mmol/L (3.5-5.1); SODIUM 132 mmol/L (136-145); eGFR NON BLACK RACES 4 (>60)
--- NOTE | 2023-04-26 15:17 | US ---
EXAM:RENAL SCANHISTORY:RENAL FAILURE;COMPARISON:None available.TECHNIQUE:Multiple reilly scale and color flow Doppler images of the kidneys were obtained. The region of the urinary bladder was evaluated as well.FINDINGS:The right kidney measures 13.5 x 5.9 x 6.1 cm.The right kidney is normal in its echotexture. No focal mass, hydronephrosis, or stone is identified. Multiple simple renal cysts are noted with the largest measuring 3.1 x 2.4 x 2.8 cmThe left kidney measures 14.4 x 6.8 x 7.6 cm.The left kidney is normal in its echotexture. No focal mass, hydronephrosis, or stone is identified. Interpolar simple cyst measures 2.7 x 2.7 x 2.3 cm.There is a Lisa catheter in the urinary bladder.IMPRESSION:No acute renal abnormalityBilateral simple cystsTHIS IS AN ELECTRONICALLY VERIFIED FINAL [id number]/26/2023 3:13 PM - Electronically signed by James Shanks MD
[2023-04-26] MEDS ORDERED: LASIX IVP ONE ×2 (17:00→17:30)
[2023-04-26] MEDS: BENTYL CAP 10 MG PO PRN (17:33)
[2023-04-26] MEDS: LIBRIUM PO SCH ×2 (17:34→20:04)
[2023-04-26] MEDS: VANCOMYCIN HCL 250 MG CAP PO SCH ×2 (17:34→23:48)
[2023-04-26] MEDS: TAB-A-VITE PO SCH (17:34)
[2023-04-26] MEDS: FLAGYL TAB 500 MG PO SCH (17:34)
[2023-04-26] MEDS: ALBUMIN HUMAN 25%- 100 ML 100 ML IV SCH (17:35)
[2023-04-26 20:10] LABS: BLOOD UREA NITROGEN 86 mg/dL (7-18); CARBON DIOXIDE 17.8 mmol/L (21-32); CHLORIDE 100 mmol/L (98-107); CREATININE 13.73 mg/dL (0.70-1.30); GLUCOSE 106 mg/dL (65-99); POTASSIUM 4.5 mmol/L (3.5-5.1); SODIUM 132 mmol/L (136-145); eGFR NON BLACK RACES 4 (>60)
--- NOTE | 2023-04-27 00:41 | RAD ---
EXAM:KUBHISTORY:PYELONEPHRITIS;COMPARISO N:CT abdomen/pelvis from April 25, 2023TECHNIQUE:AP supine projection, 1 imageFINDINGS:Mild gaseous distention of the colon.No gross free air.No abnormal calcifications.No acute osseous abnormality.IMPRESSION:No acute intra-abdominal abnormality detected.THIS IS AN ELECTRONICALLY VERIFIED FINAL [id number]/27/2023 12:37 AM - Electronically signed by Enrique Neal MD
[2023-04-27 01:03] LABS: BLOOD UREA NITROGEN 86 mg/dL (7-18); CARBON DIOXIDE 16.6 mmol/L (21-32); CHLORIDE 100 mmol/L (98-107); CREATININE 13.45 mg/dL (0.70-1.30); GLUCOSE 79 mg/dL (65-99); POTASSIUM 4.3 mmol/L (3.5-5.1); SODIUM 134 mmol/L (136-145); eGFR NON BLACK RACES 4 (>60)
[2023-04-27 01:07] LABS: CALCIUM 5.9 mg/dL (8.5-10.1)
[2023-04-27] MEDS: ALBUMIN HUMAN 25%- 100 ML 100 ML IV SCH ×3 (01:23→09:07)
[2023-04-27] MEDS: FLAGYL TAB 500 MG PO SCH ×4 (01:24→17:04)
[2023-04-27] MEDS ORDERED: LASIX IVP ONE ×2 (01:30→08:00)
[2023-04-27] MEDS ORDERED: LASIX IVP SCH (01:30)
[2023-04-27] MEDS ORDERED: NS 1/2 1,000 ML IV 1,000 ML IV ONE (03:12)
[2023-04-27] MEDS: NS IV SCH ×3 (03:20→21:44)
[2023-04-27] MEDS: SODIUM BICARBONATE 8.4% IV SCH ×3 (03:20→21:44)
[2023-04-27] MEDS: NS 1,000 ML IV 1,000 ML IV SCH ×3 (03:27→16:10)
[2023-04-27] MEDS: VANCOMYCIN HCL 250 MG CAP PO SCH ×4 (05:09→17:03)
[2023-04-27 05:28] LABS: BASOPHILS % (AUTO) 0.1 % (0.2-1.0); EOSINOPHILS % (AUTO) 0.4 % (0.9-2.9); HEMATOCRIT 27.1 % (42.0-54.0); HEMOGLOBIN 9.1 g/dL (13.5-18.0); LYMPHOCYTES # (AUTO) 0.5 X10^3/uL (1.3-2.9); LYMPHOCYTES % (AUTO) 9.7 % (21.0-51.0); MEAN CORPUSCULAR HEMOGLOBIN 34.7 pg (27.0-34.0); MEAN CORPUSCULAR HGB CONC 33.4 g/dL (33.0-35.0); MEAN CORPUSCULAR VOLUME 103.9 fL (80.0-100.0); MEAN PLATELET VOLUME 8.5 fL (7.4-11.0); MONOCYTES # (AUTO) 0.6 x10^3/uL (0.3-0.8); MONOCYTES % (AUTO) 11.4 % (0.0-13.0); NEUTROPHILS % (AUTO) 78.4 % (42.0-75.0); PLATELET COUNT 56 X10^3/uL (150.0-450.0); RED BLOOD COUNT 2.61 X10^6/uL (4.7-6.0); RED CELL DISTRIBUTION WIDTH 15.4 % (11.6-16.5); WHITE BLOOD COUNT 5.1 X10^3/uL (3.6-10.0)
[2023-04-27 05:40] LABS: ALANINE AMINOTRANSFERASE 33 Units/L (12-78); ALBUMIN 2.9 g/dL (3.4-5.0); ALKALINE PHOSPHATASE 44 Units/L (46-116); ASPARTATE AMINO TRANSFERASE 72 Units/L (15-37); BLOOD UREA NITROGEN 85 mg/dL (7-18); CALCIUM 6.1 mg/dL (8.5-10.1); CARBON DIOXIDE 16.3 mmol/L (21-32); CHLORIDE 99 mmol/L (98-107); CREATININE 13.39 mg/dL (0.70-1.30); GLUCOSE 72 mg/dL (65-99); POTASSIUM 4.1 mmol/L (3.5-5.1); SODIUM 134 mmol/L (136-145); TOTAL PROTEIN 5.9 g/dL (6.4-8.2); eGFR NON BLACK RACES 4 (>60)
--- NOTE | 2023-04-27 07:17 | RAD ---
EXAM:AP chestHISTORY:Wheezing short of breathCOMPARISON:NoneFINDINGS:Transverse heart dimension is borderline enlarged with clear lungs and pleural spaces. There is no evidence for pneumonia, CHF/edema or pleural effusion.IMPRESSION:No acute chest findings.THIS IS AN ELECTRONICALLY VERIFIED FINAL [id number]/27/2023 7:13 AM - Electronically signed by Ayush Pro MD
[2023-04-27] MEDS: LIBRIUM PO SCH ×4 (08:47→20:52)
[2023-04-27] MEDS: TAB-A-VITE PO SCH (08:48)
[2023-04-27] MEDS: BENTYL CAP 10 MG PO PRN ×2 (08:48→17:03)
[2023-04-27 09:53] LABS: BLOOD UREA NITROGEN 86 mg/dL (7-18); CALCIUM 6.2 mg/dL (8.5-10.1); CHLORIDE 97 mmol/L (98-107); CREATININE 13.34 mg/dL (0.70-1.30); GLUCOSE 106 mg/dL (65-99); POTASSIUM 4.1 mmol/L (3.5-5.1); SODIUM 133 mmol/L (136-145); eGFR NON BLACK RACES 4 (>60)
[2023-04-27 14:51] LABS: CALCIUM 6.1 mg/dL (8.5-10.1); CARBON DIOXIDE 18.5 mmol/L (21-32); CREATININE 13.16 mg/dL (0.70-1.30); POTASSIUM 3.7 mmol/L (3.5-5.1)
[2023-04-27] MEDS: BUTT CREAM (COMPOUND) TOP PRN (16:15)
[2023-04-27] MEDS ORDERED: APRESOLINE INJ 20 MG VIAL IVP PRN (17:00)
[2023-04-27] MEDS: PROTONIX TAB 40 MG PO SCH ×2 (17:03→20:52)
[2023-04-27] MEDS: CATAPRES TAB 0.1 MG PO PRN (17:04)
[2023-04-27] MEDS: FLONASE NASAL SPRAY ENOSTRIL SCH (17:04)
[2023-04-27 18:34] LABS: CALCIUM 6.2 mg/dL (8.5-10.1); CARBON DIOXIDE 19.1 mmol/L (21-32); CREATININE 12.99 mg/dL (0.70-1.30); POTASSIUM 3.5 mmol/L (3.5-5.1)
[2023-04-27] MEDS ORDERED: CONSULT PHARMACY - POTASSIUM & MAGNESIUM XX SCH (19:00)
[2023-04-27] MEDS: MAG-OX TAB PO SCH ×2 (20:53→22:14)
[2023-04-27] MEDS ORDERED: NS + KCL 20 MEQ/L 1,000 ML IV SCH (21:00)
[2023-04-27] MEDS ORDERED: KLOR-CON PO SCH (21:00)
[2023-04-27 22:11] LABS: BLOOD UREA NITROGEN 87 mg/dL (7-18); CALCIUM 6.2 mg/dL (8.5-10.1); CARBON DIOXIDE 21.2 mmol/L (21-32); CHLORIDE 99 mmol/L (98-107); CREATININE 12.71 mg/dL (0.70-1.30); GLUCOSE 83 mg/dL (65-99); POTASSIUM 3.8 mmol/L (3.5-5.1); SODIUM 135 mmol/L (136-145); eGFR NON BLACK RACES 4 (>60)
[2023-04-28] MEDS: FLAGYL TAB 500 MG PO SCH ×3 (01:06→17:23)
[2023-04-28] MEDS: VANCOMYCIN HCL 250 MG CAP PO SCH ×4 (01:07→17:23)
[2023-04-28] MEDS: BENTYL CAP 10 MG PO PRN ×3 (02:09→17:23)
[2023-04-28 02:11] LABS: BLOOD UREA NITROGEN 88 mg/dL (7-18); CALCIUM 6.1 mg/dL (8.5-10.1); CARBON DIOXIDE 17.6 mmol/L (21-32); CHLORIDE 100 mmol/L (98-107); CREATININE 12.38 mg/dL (0.70-1.30); GLUCOSE 86 mg/dL (65-99); SODIUM 135 mmol/L (136-145); eGFR NON BLACK RACES 4 (>60)
[2023-04-28] MEDS: BUTT CREAM (COMPOUND) TOP PRN ×3 (04:18→21:50)
[2023-04-28 06:18] LABS: HEMOGLOBIN 8.8 g/dL (13.5-18.0); WHITE BLOOD COUNT 4.9 X10^3/uL (3.6-10.0)
[2023-04-28 06:24] LABS: BASOPHILS % (AUTO) 0.2 % (0.2-1.0); EOSINOPHILS # (AUTO) 0.1 x10^3/uL (0.0-0.2); EOSINOPHILS % (AUTO) 1.8 % (0.9-2.9); HEMATOCRIT 25.7 % (42.0-54.0); LYMPHOCYTES # (AUTO) 0.5 X10^3/uL (1.3-2.9); LYMPHOCYTES % (AUTO) 10.8 % (21.0-51.0); MEAN CORPUSCULAR HGB CONC 34.4 g/dL (33.0-35.0); MEAN CORPUSCULAR VOLUME 101.9 fL (80.0-100.0); MEAN PLATELET VOLUME 8.6 fL (7.4-11.0); MONOCYTES # (AUTO) 0.6 x10^3/uL (0.3-0.8); MONOCYTES % (AUTO) 13.1 % (0.0-13.0); NEUTROPHILS # (AUTO) 3.7 x10^3/uL (2.2-4.8); NEUTROPHILS % (AUTO) 74.1 % (42.0-75.0); PLATELET COUNT 64 X10^3/uL (150.0-450.0); RED BLOOD COUNT 2.52 X10^6/uL (4.7-6.0); RED CELL DISTRIBUTION WIDTH 15.4 % (11.6-16.5)
[2023-04-28 06:27] LABS: MAGNESIUM 1.6 mg/dL (2.0-2.9)
[2023-04-28 06:50] LABS: BLOOD UREA NITROGEN 86 mg/dL (7-18); CALCIUM 6.2 mg/dL (8.5-10.1); CARBON DIOXIDE 18.5 mmol/L (21-32); CHLORIDE 100 mmol/L (98-107); CREATININE 12.29 mg/dL (0.70-1.30); GLUCOSE 90 mg/dL (65-99); POTASSIUM 3.8 mmol/L (3.5-5.1); SODIUM 136 mmol/L (136-145); eGFR NON BLACK RACES 4 (>60)
[2023-04-28] MEDS: NS 1,000 ML IV 1,000 ML IV SCH ×3 (07:50→22:04)
[2023-04-28] MEDS: NS IV SCH (09:05)
[2023-04-28] MEDS: TAB-A-VITE PO SCH (09:05)
[2023-04-28] MEDS: SODIUM BICARBONATE 8.4% IV SCH (09:05)
[2023-04-28] MEDS: PROTONIX TAB 40 MG PO SCH ×2 (09:07→20:29)
[2023-04-28] MEDS: LIBRIUM PO SCH ×5 (09:07→20:29)
[2023-04-28] MEDS: FLONASE NASAL SPRAY ENOSTRIL SCH (09:08)
[2023-04-28] MEDS ORDERED: HALDOL INJ IVP PRN (10:39)
[2023-04-28 13:28] LABS: BLOOD UREA NITROGEN 85 mg/dL (7-18); CALCIUM 6.5 mg/dL (8.5-10.1); CARBON DIOXIDE 19.9 mmol/L (21-32); CHLORIDE 99 mmol/L (98-107); CREATININE 11.88 mg/dL (0.70-1.30); GLUCOSE 92 mg/dL (65-99); POTASSIUM 3.7 mmol/L (3.5-5.1); SODIUM 136 mmol/L (136-145); eGFR NON BLACK RACES 5 (>60)
[2023-04-28] MEDS: CATAPRES TAB 0.1 MG PO PRN (17:23)
[2023-04-29] MEDS: VANCOMYCIN HCL 250 MG CAP PO SCH ×4 (00:55→17:26)
[2023-04-29] MEDS: CATAPRES TAB 0.1 MG PO PRN ×2 (01:15→17:55)
[2023-04-29] MEDS: FLAGYL TAB 500 MG PO SCH ×3 (01:15→17:25)
[2023-04-29] MEDS: NS 1,000 ML IV 1,000 ML IV SCH ×3 (05:13→19:04)
[2023-04-29 05:26] LABS: BASOPHILS % (AUTO) 0.3 % (0.2-1.0); EOSINOPHILS # (AUTO) 0.1 x10^3/uL (0.0-0.2); EOSINOPHILS % (AUTO) 2.6 % (0.9-2.9); HEMATOCRIT 25.9 % (42.0-54.0); HEMOGLOBIN 8.6 g/dL (13.5-18.0); LYMPHOCYTES # (AUTO) 0.6 X10^3/uL (1.3-2.9); LYMPHOCYTES % (AUTO) 12.8 % (21.0-51.0); MEAN CORPUSCULAR HEMOGLOBIN 34.6 pg (27.0-34.0); MEAN CORPUSCULAR HGB CONC 33.3 g/dL (33.0-35.0); MEAN CORPUSCULAR VOLUME 103.6 fL (80.0-100.0); MEAN PLATELET VOLUME 8.5 fL (7.4-11.0); MONOCYTES # (AUTO) 0.8 x10^3/uL (0.3-0.8); MONOCYTES % (AUTO) 17.4 % (0.0-13.0); NEUTROPHILS # (AUTO) 3.1 x10^3/uL (2.2-4.8); NEUTROPHILS % (AUTO) 66.9 % (42.0-75.0); PLATELET COUNT 83 X10^3/uL (150.0-450.0); RED CELL DISTRIBUTION WIDTH 15.1 % (11.6-16.5); WHITE BLOOD COUNT 4.6 X10^3/uL (3.6-10.0)
[2023-04-29 05:33] LABS: ALANINE AMINOTRANSFERASE 25 Units/L (12-78); ALBUMIN 2.5 g/dL (3.4-5.0); ALKALINE PHOSPHATASE 40 Units/L (46-116); ASPARTATE AMINO TRANSFERASE 48 Units/L (15-37); BLOOD UREA NITROGEN 87 mg/dL (7-18); CALCIUM 6.3 mg/dL (8.5-10.1); CARBON DIOXIDE 20.2 mmol/L (21-32); CHLORIDE 105 mmol/L (98-107); COR CA(FOR HYPOALB) 7.5 mg/dL (8.5-10.1); CREATININE 10.68 mg/dL (0.70-1.30); GLUCOSE 98 mg/dL (65-99); MAGNESIUM 1.6 mg/dL (2.0-2.9); POTASSIUM 3.6 mmol/L (3.5-5.1); SODIUM 140 mmol/L (136-145); TOTAL PROTEIN 5.3 g/dL (6.4-8.2); eGFR NON BLACK RACES 5 (>60)
[2023-04-29] MEDS ORDERED: CONSULT PHARMACY - POTASSIUM & MAGNESIUM XX SCH (06:00)
[2023-04-29 06:01] LABS: AMYLASE 261 Units/L (25-115); CREATINE KINASE 492 Units/L (39-308); LIPASE 545 Units/L (16-77)
[2023-04-29] MEDS: FLONASE NASAL SPRAY ENOSTRIL SCH (08:52)
[2023-04-29] MEDS: LIBRIUM PO SCH ×4 (08:53→21:32)
[2023-04-29] MEDS: TAB-A-VITE PO SCH (08:53)
[2023-04-29] MEDS: MAG-OX TAB PO SCH ×2 (08:54→10:50)
[2023-04-29] MEDS ORDERED: MICRO K EXTEN CAP 10 MEQ PO SCH (09:00)
[2023-04-29] MEDS ORDERED: K-DUR TAB 20 MEQ PO SCH (09:00)
[2023-04-29] MEDS: INDERAL TAB 10 MG PO SCH ×2 (09:01→21:31)
[2023-04-29] MEDS: PROTONIX TAB 40 MG PO SCH ×2 (09:02→21:31)
[2023-04-29] MEDS: BENTYL CAP 10 MG PO PRN (21:31)
[2023-04-30] MEDS: VANCOMYCIN HCL 250 MG CAP PO SCH ×5 (00:47→23:32)
[2023-04-30] MEDS: FLAGYL TAB 500 MG PO SCH ×3 (01:04→17:09)
[2023-04-30] MEDS: NS 1,000 ML IV 1,000 ML IV SCH ×5 (01:45→23:33)
[2023-04-30 05:34] LABS: BASOPHILS # (AUTO) 0.1 X10^3/uL (0.0-0.1); BASOPHILS % (AUTO) 1.4 % (0.2-1.0); EOSINOPHILS # (AUTO) 0.2 x10^3/uL (0.0-0.2); EOSINOPHILS % (AUTO) 4.1 % (0.9-2.9); HEMATOCRIT 24.3 % (42.0-54.0); HEMOGLOBIN 8.2 g/dL (13.5-18.0); LYMPHOCYTES # (AUTO) 0.6 X10^3/uL (1.3-2.9); LYMPHOCYTES % (AUTO) 13.3 % (21.0-51.0); MEAN CORPUSCULAR HEMOGLOBIN 34.8 pg (27.0-34.0); MEAN CORPUSCULAR HGB CONC 33.7 g/dL (33.0-35.0); MEAN CORPUSCULAR VOLUME 103.2 fL (80.0-100.0); MEAN PLATELET VOLUME 8.5 fL (7.4-11.0); MONOCYTES # (AUTO) 0.7 x10^3/uL (0.3-0.8); MONOCYTES % (AUTO) 14.6 % (0.0-13.0); NEUTROPHILS # (AUTO) 3.2 x10^3/uL (2.2-4.8); NEUTROPHILS % (AUTO) 66.6 % (42.0-75.0); PLATELET COUNT 111 X10^3/uL (150.0-450.0); RED BLOOD COUNT 2.35 X10^6/uL (4.7-6.0); WHITE BLOOD COUNT 4.7 X10^3/uL (3.6-10.0)
[2023-04-30 05:46] LABS: ALANINE AMINOTRANSFERASE 34 Units/L (12-78); ALBUMIN 2.5 g/dL (3.4-5.0); ALKALINE PHOSPHATASE 42 Units/L (46-116); ASPARTATE AMINO TRANSFERASE 52 Units/L (15-37); BLOOD UREA NITROGEN 76 mg/dL (7-18); CALCIUM 6.5 mg/dL (8.5-10.1); CARBON DIOXIDE 18.5 mmol/L (21-32); CHLORIDE 106 mmol/L (98-107); COR CA(FOR HYPOALB) 7.7 mg/dL (8.5-10.1); GLUCOSE 94 mg/dL (65-99); POTASSIUM 3.2 mmol/L (3.5-5.1); SODIUM 140 mmol/L (136-145); TOTAL PROTEIN 5.4 g/dL (6.4-8.2); eGFR NON BLACK RACES 7 (>60)
--- NOTE | 2023-04-30 06:06 | RAD ---
EXAM:Portable chestHISTORY:Shortness of breathCOMPARISON:04/27/2023FINDINGS:Hear t is enlarged. No congestive heart failure is noted. No acute alveolar infiltrates or pleural effusions are identified. Bony thorax is unremarkable.IMPRESSION:Mild cardiomegaly without congestive heart failureNo acute infiltratesTHIS IS AN ELECTRONICALLY VERIFIED FINAL [id number]/30/2023 6:03 AM - Electronically signed by Ubaldo Jimenez MD
[2023-04-30] MEDS ORDERED: CONSULT PHARMACY - POTASSIUM & MAGNESIUM XX SCH (07:00)
[2023-04-30] MEDS: BUTT CREAM (COMPOUND) TOP PRN ×2 (08:47→14:30)
[2023-04-30 08:58] LABS: AMYLASE 268 Units/L (25-115)
[2023-04-30] MEDS ORDERED: MAGNESIUM SULFATE 1 GRAM/100 mL PREMIX 1 G/100 ML BAG IV ONE (09:00)
[2023-04-30] MEDS ORDERED: K-RIDER 10 MEQ/NS 100 ML 20 MEQ/200 ML BAG IV ONE (09:00)
[2023-04-30 09:08] LABS: LIPASE 549 Units/L (16-77)
[2023-04-30] MEDS: FLONASE NASAL SPRAY ENOSTRIL SCH (09:29)
[2023-04-30] MEDS: PROTONIX TAB 40 MG PO SCH ×2 (09:30→20:21)
[2023-04-30] MEDS: TAB-A-VITE PO SCH (09:30)
[2023-04-30] MEDS: MAG-OX TAB PO SCH ×2 (09:30→10:51)
[2023-04-30] MEDS: INDERAL TAB 10 MG PO SCH ×2 (09:30→20:21)
[2023-04-30] MEDS: BENTYL CAP 10 MG PO PRN ×3 (09:30→20:23)
[2023-04-30] MEDS: LIBRIUM PO SCH ×4 (09:30→20:21)
[2023-04-30] MEDS: K-DUR TAB 20 MEQ PO SCH ×2 (09:31→10:51)
[2023-04-30] MEDS ORDERED: CATAPRES-TTS-2 TD SCH (10:00)
[2023-04-30] MEDS: LOMOTIL PO PRN ×2 (15:45→20:23)
[2023-04-30] MEDS: APRESOLINE INJ 20 MG VIAL IVP PRN (21:09)
--- NOTE | 2023-04-30 22:02 | PCM.PROG ---
Progress Note - Progress Note for Day of Date of Exam: 04/30/23 - Subjective Subjective: IS A 62 YEAR OLD PATIENT OF OURS. HE IS CURRENTLY INPATIENT STATUS FOR TREATMENT OF C.DIFF COLITIS, ACUTE RHABDOMYOLYSIS, ACUTE KIDNEY FAILURE, ACUTE PANCREATITIS, CHRONIC LIVER DISEASE DUE TO ALCOHOL, HYPERTENSION, AND GENERALIZED ANXIETY. HE IS CURRENTLY ON PO ANTIBIOTICS FOR C .DIFF INFECTION WITH FLAGYL AND VANCOMYCIN. HE HAS A CRANDALL CATHETER IN PLACE WITH STRICK I&Os WITH GENTLE HYDRATION. HE HAS HAD AN UNEVENTFUL NIGHT. HE IS ALERT AND ORIENTED, SITTING UP IN THE CHAIR ON MORNING ROUNDS. HE COMPLAINS OF PERSISTENT DIARRHEA. NURSING STAFF REPORTS THAT HE HAS CONTINUED TO HAVE SOME AGITATION AND RESTLESSNESS. ON EXAMINATION, HEART IS REGULAR IN RATE AND RHYTHM. BILATERAL LUNGS ARE NOTED WITH DIMINISHED LUNG SOUNDS THROUGHOUT. ABDOMEN IS ROUND, SOFT, AND NON-TENDER WITH NORMAL BOWEL SOUNDS NOTED IN ALL QUADRANTS. GOOD RANGE OF MOTION NOTED TO UPPER AND LOWER EXTREMITIES WITH NO EDEMA NOTED. CRANDALL CATHETER NOTED TO BEDSIDE DRAINAGE. HIS VITALS THIS MORNING WERE: 97 .5-84-16-95%-176/84. LABS WERE OBTAINED. WBC 4.7, RBC 2.35, HGB 8.2, HCT 24.3, PLT COUNT 111, SODIUM 140, POTASSIUM 3.2, CHLORIDE 106, CARBON DIOXIDE 18.5, BUN 76, CREATININE 8.20, GLUCOSE 94, CALCIUM 6.5, MAGNESIUM 1.5, TOTAL BILI 0.80, AST 52, ALT 34, ALK PHOS 42, TOTAL PROTEIN 5.4, ALBUMIN 2.5. STOOL WAS POSITIVE FOR OCCULT BLOOD AND WHITE CELLS. HE IS CURRENTLY RECEIVING NORMAL SALINE AT 150 ML/HR, LIBRIUM 25MG QID, HALDOL 2.5MG IV Q8H PRN, FLAGYL 500MG PO Q8H, VANCOMYCIN 250MG PO Q6H, APRESOLINE 10MG IV Q4H PRN, BENTYL 20MG PO Q6H PRN, FLONASE 2 SPRAYS EACH NOSTRIL DAILY, MULTIVITAMINS DAILY, PROTONIX 40MG BID, INDERAL 10MG BID. TODAY, WE WILL ADD LOMOTIL 1TAB TID PRN AND CATAPRES 0.2MG/HR TD PATCH. OTHERWISE, WE WILL FOLLOW-UP WITH AM LABS AND CONTINUE TO MONITOR. TIME SPENT ON CLINICAL ASSESSMENT, REVIEWING LABS AND IMAGING, DECISION MAKING, AND DOCUMENTATION GREATER THAN 45 MINUTES. - Past Medical Family Social History Past Med/Fam/Surg Hx: No changes since H&P Allergies: Allergies No Known Drug Allergies Allergy (Verified 01/24/20 16:30) - Review of Systems ROS: No change since H&P - Vital Signs and I&O's Vital Signs: Vital Signs Temperature 98.7 F Temperature 98.4 F Pulse Rate 70 Pulse Rate 78 Pulse Rate 79 Pulse Rate 92 Pulse Rate 80 Pulse Rate 91 Pulse Rate 72 Pulse Rate 65 Pulse Rate 50 Pulse Rate 52 Pulse Rate 62 Respiratory Rate 12 Respiratory Rate 14 Respiratory Rate 17 Respiratory Rate 14 Respiratory Rate 15 Respiratory Rate 20 Respiratory Rate 16 Respiratory Rate 21 Respiratory Rate 11 Blood Pressure 199/91 Blood Pressure 208/99 Blood Pressure 182/93 Blood Pressure 182/93 Blood Pressure 182/93 Blood Pressure 187/98 Blood Pressure 188/92 Blood Pressure 170/93 Blood Pressure 170/93 Blood Pressure 178/91 O2 Sat by Pulse Oximetry 98 O2 Sat by Pulse Oximetry 99 O2 Sat by Pulse Oximetry 98 O2 Sat by Pulse Oximetry 100 O2 Sat by Pulse Oximetry 100 O2 Sat by Pulse Oximetry 99 O2 Sat by Pulse Oximetry 98 O2 Sat by Pulse Oximetry 99 O2 Sat by Pulse Oximetry 100 O2 Sat by Pulse Oximetry 98 O2 Sat by Pulse Oximetry 92 Intake and Output: Intake & Output 04/28/23 04/29/23 04/30/23 05/01/23 11:59 11:59 11:59 11:59 Intake Total 4490 / 4490 4245 / 4245 2870 / 2870 2447 / 2447 Output Total 3660 / 3760 4555 / 4628 3463 / 3563 1350 / 1350 Balance 830 / 730 -310 / -383 -593 / -693 1097 / 1097 - Physical Exam Oriented: Normal Eyes: Normal Ear: Normal Nose: Normal Throat: Normal Respiratory: Diminished Cardiovascular: Normal : Normal Auscultation: Bowel Sounds: Normal Palpation: Normal Tenderness: Normal Skin: Decreased Turgur Musculoskeletal: Motor Deficit Mood Description: Anxious Affect: Anxious Speech Pattern: Clear, Appropriate - Laboratory and Diagnostics Result Diagrams: 04/30/23 05:01 04/30/23 05:01 Labs: 04/26/23 08:30 Stool Stool Culture - Final 04/26/23 08:30 Stool - Final Laboratory WBC 4.7 X10^3/uL (3.6-10.0) 04/30/23 05:01 RBC 2.35 X10^6/uL (4.7-6.0) L 04/30/23 05:01 Hgb 8.2 g/dL (13.5-18.0) L 04/30/23 05:01 Hct 24.3 % (42.0-54.0) L 04/30/23 05:01 MCV 103.2 fL (80.0-100.0) H 04/30/23 05:01 MCH 34.8 pg (27.0-34.0) H 04/30/23 05:01 MCHC 33.7 g/dL (33.0-35.0) 04/30/23 05:01 RDW 15.0 % (11.6-16.5) 04/30/23 05:01 Plt Count 111 X10^3/uL (150.0-450.0) L 04/30/23 05:01 Plt Count Comment Decreased (ADEQUATE) 04/25/23 15:40 MPV 8.5 fL (7.4-11.0) 04/30/23 05:01 Neut % (Auto) 66.6 % (42.0-75.0) 04/30/23 05:01 Lymph % (Auto) 13.3 % (21.0-51.0) L 04/30/23 05:01 [place] % (Auto) 14.6 % (0.0-13.0) H 04/30/23 05:01 Eos % (Auto) 4.1 % (0.9-2.9) H 04/30/23 05:01 Baso % (Auto) 1.4 % (0.2-1.0) H 04/30/23 05:01 Neut # (Auto) 3.2 x10^3/uL (2.2-4.8) 04/30/23 05:01 Lymph # (Auto) 0.6 X10^3/uL (1.3-2.9) L 04/30/23 05:01 [place] # (Auto) 0.7 x10^3/uL (0.3-0.8) 04/30/23 05:01 Eos # (Auto) 0.2 x10^3/uL (0.0-0.2) 04/30/23 05:01 Baso # (Auto) 0.1 X10^3/uL (0.0-0.1) 04/30/23 05:01 Absolute Nucleated RBC 0.1 /100WBC 04/30/23 05:01 Total Counted 100 04/25/23 15:40 Neutrophils % (Manual) 89 % (39-76) H 04/25/23 15:40 Lymphocytes % (Manual) 8 % (13-43) L 04/25/23 15:40 Monocytes % (Manual) 3 % (4-9) L 04/25/23 15:40 Nucleated RBCs 2 04/25/23 15:40 Plt Morphology Comment Normal (NORMAL) 04/25/23 15:40 RBC Morphology Normal (NORMAL) 04/25/23 15:40 Sample Site Rr 04/25/23 16:26 ABG pH 7.270 (7.35-7.45) L 04/25/23 16:26 ABG pCO2 28.0 mmHg (35.0-45.0) L 04/25/23 16:26 ABG pO2 92.0 mmHg (80.0-100.0) 04/25/23 16:26 ABG HCO3 12.9 mmol/L (22-26) L* 04/25/23 16:26 ABG O2 Saturation 96.0 % (90-100) 04/25/23 16:26 ABG Base Excess -12.6 mmol/L (-2.0-2.0) L 04/25/23 16:26 Juan Test Pos 04/25/23 16:26 A-a Gradient Not Reportable 04/25/23 16:26 FiO2 21.0 04/25/23 16:26 Blood Gas Comments Autumn well. sd 04/25/23 16:26 Sodium 140 mmol/L (136-145) 04/30/23 05:01 Corrected Sodium TNP 04/30/23 05:01 Potassium 3.2 mmol/L (3.5-5.1) L 04/30/23 05:01 Chloride 106 mmol/L (98-107) 04/30/23 05:01 Carbon Dioxide 18.5 mmol/L (21-32) L 04/30/23 05:01 BUN 76 mg/dL (7-18) H 04/30/23 05:01 Creatinine 8.20 mg/dL (0.70-1.30) H 04/30/23 05:01 Est GFR (MDRD) Af Amer 9 (>60) L 04/30/23 05:01 Est GFR (MDRD) Non-Af 7 (>60) L 04/30/23 05:01 Glucose 94 mg/dL (65-99) 04/30/23 05:01 Lactic Acid 0.5 mmol/L (0.4-2.0) 04/27/23 00:15 Calcium 6.5 mg/dL (8.5-10.1) L 04/30/23 05:01 Corrected Calcium 7.7 mg/dL (8.5-10.1) L 04/30/23 05:01 Magnesium 1.5 mg/dL (2.0-2.9) L 04/30/23 05:01 Total Bilirubin 0.80 mg/dL (0.2-1.0) 04/30/23 05:01 AST 52 Units/L (15-37) H 04/30/23 05:01 ALT 34 Units/L (12-78) 04/30/23 05:01 Alkaline Phosphatase 42 Units/L (46-116) L 04/30/23 05:01 Ammonia 16 umol/L (11-32) 04/28/23 13:12 Creatine Kinase 492 Units/L (39-308) H 04/29/23 05:09 Total Protein 5.4 g/dL (6.4-8.2) L 04/30/23 05:01 Albumin 2.5 g/dL (3.4-5.0) L 04/30/23 05:01 Globulin 2.9 g/dL (2.5-4.5) 04/30/23 05:01 Albumin/Globulin Ratio 0.9 Ratio (1.1-2.1) L 04/30/23 05:01 Amylase 268 Units/L (25-115) H 04/30/23 05:01 Lipase 549 Units/L (16-77) H 04/30/23 05:01 Total PSA 3.44 ng/mL (0.13-4.0) 04/26/23 04:16 Vitamin B12 > 2000 pg/mL (193-986) H 04/25/23 15:39 Folate 3.5 ng/mL (>8.6) L 04/25/23 15:39 Specimen Type Catherized urine 04/26/23 09:50 Urine Color Yellow (YELLOW) 04/26/23 09:50 Urine Appearance Slightly hazy (CLEAR) 04/26/23 09:50 Urine pH 5.0 (5.0 - 8.0) 04/26/23 09:50 Ur Specific [place] 1.015 (1.000-1.030) 04/26/23 09:50 Urine Protein 3+ (NEGATIVE) 04/26/23 09:50 Urine Glucose (UA) 2+ (NEGATIVE) 04/26/23 09:50 Urine Ketones Negative (NEGATIVE) 04/26/23 09:50 Urine Blood 5+ (NEGATIVE) 04/26/23 09:50 Urine Nitrite Negative (NEGATIVE) 04/26/23 09:50 Urine Bilirubin Negative (NEGATIVE) 04/26/23 09:50 Urine Urobilinogen Normal (NORMAL) 04/26/23 09:50 Ur Leukocyte Esterase 1+ (NEGATIVE) 04/26/23 09:50 Urine RBC 5-10 /HPF (0-3) A 04/25/23 16:41 Urine WBC 3-5 /HPF (0-5) 04/25/23 16:41 Ur Squamous Epith Cells Rare /HPF (NEGATIVE) 04/25/23 16:41 Amorphous Sediment 1+ /HPF (NEGATIVE) 04/25/23 16:41 Urine Bacteria Negative /HPF (NEGATIVE) 04/25/23 16:41 Coarse Granular Casts Few /HPF (NEGATIVE) 04/25/23 16:41 Urine Mucus Few /HPF (NEGATIVE) 04/25/23 16:41 Ur Culture Indicated? No/not indicated 04/25/23 16:41 Stl Occult Blood (IFOB) Positive (NEGATIVE) A 04/26/23 08:30 Stool for White Cells Positive (NEGATIVE) A 04/26/23 08:30 Stl C. diff Tox B Gene Positive (NEGATIVE) A 04/26/23 08:30 Stl C. diff [id number] Presumptive negative (NEGATIVE) 04/26/23 08:30 Stool H. pylori Ag Negative (NEGATIVE) 04/26/23 08:30 Ethyl Alcohol mg/dL 19 mg/dL (0-19.9) 04/25/23 15:40 Ethyl Alcohol mg/dL Cancelled 04/25/23 15:40 C. difficile Toxin A&B Positive (NEGATIVE) A 04/26/23 08:30 - Plan (1) Acute nontraumatic kidney injury Status: Acute Plan: NORMAL SALINE AT 150 ML/HR, LIBRIUM 25MG QID, HALDOL 2.5MG IV Q8H PRN, FLAGYL 500MG PO Q8H, VANCOMYCIN 250MG PO Q6H, APRESOLINE 10MG IV Q4H PRN, BENTYL 20MG PO Q6H PRN, FLONASE 2 SPRAYS EACH NOSTRIL DAILY, MULTIVITAMINS DAILY, PROTONIX 40MG BID, INDERAL 10MG BID, LOMOTIL 1TAB TID PRN, AND CATAPRES 0.2MG/HR TD PATCH (2) Acute pancreatitis Status: Acute Qualifiers: Pancreatitis type: alcohol induced Acute pancreatitis complication: unspecified Qualified Code(s): K85.20 - Alcohol induced acute pancreatitis without necrosis or infection (3) Alcohol abuse Status: Acute (4) Hypertension Status: Acute Qualifiers: Hypertension type: primary hypertension Qualified Code(s): I10 - Essential (primary) hypertension (5) Metabolic acidosis Status: Acute (6) Rhabdomyolysis Status: Acute
[2023-05-01] MEDS: FLAGYL TAB 500 MG PO SCH ×3 (02:35→17:40)
[2023-05-01] MEDS: NS 1,000 ML IV 1,000 ML IV SCH ×4 (04:45→23:16)
[2023-05-01 04:55] LABS: ALANINE AMINOTRANSFERASE 56 Units/L (12-78); ALBUMIN 2.8 g/dL (3.4-5.0); ALKALINE PHOSPHATASE 48 Units/L (46-116); ASPARTATE AMINO TRANSFERASE 71 Units/L (15-37); BASOPHILS % (AUTO) 0.5 % (0.2-1.0); BLOOD UREA NITROGEN 65 mg/dL (7-18); CALCIUM 6.6 mg/dL (8.5-10.1); CARBON DIOXIDE 20.5 mmol/L (21-32); CHLORIDE 107 mmol/L (98-107); COR CA(FOR HYPOALB) 7.6 mg/dL (8.5-10.1); CREATININE 6.42 mg/dL (0.70-1.30); EOSINOPHILS # (AUTO) 0.1 x10^3/uL (0.0-0.2); EOSINOPHILS % (AUTO) 2.3 % (0.9-2.9); GLUCOSE 85 mg/dL (65-99); HEMATOCRIT 26.8 % (42.0-54.0); HEMOGLOBIN 8.9 g/dL (13.5-18.0); LYMPHOCYTES # (AUTO) 0.9 X10^3/uL (1.3-2.9); LYMPHOCYTES % (AUTO) 16.5 % (21.0-51.0); MAGNESIUM 1.3 mg/dL (2.0-2.9); MEAN CORPUSCULAR HEMOGLOBIN 34.3 pg (27.0-34.0); MEAN CORPUSCULAR HGB CONC 33.1 g/dL (33.0-35.0); MEAN CORPUSCULAR VOLUME 103.7 fL (80.0-100.0); MEAN PLATELET VOLUME 8.2 fL (7.4-11.0); MONOCYTES # (AUTO) 0.9 x10^3/uL (0.3-0.8); MONOCYTES % (AUTO) 16.8 % (0.0-13.0); NEUTROPHILS # (AUTO) 3.5 x10^3/uL (2.2-4.8); NEUTROPHILS % (AUTO) 63.9 % (42.0-75.0); PLATELET COUNT 151 X10^3/uL (150.0-450.0); POTASSIUM 3.3 mmol/L (3.5-5.1); RED BLOOD COUNT 2.58 X10^6/uL (4.7-6.0); RED CELL DISTRIBUTION WIDTH 14.7 % (11.6-16.5); SODIUM 142 mmol/L (136-145); TOTAL PROTEIN 5.9 g/dL (6.4-8.2); WHITE BLOOD COUNT 5.5 X10^3/uL (3.6-10.0); eGFR NON BLACK RACES 9 (>60)
[2023-05-01 05:00] LABS: AMYLASE 224 Units/L (25-115); LIPASE 293 Units/L (16-77)
[2023-05-01] MEDS: VANCOMYCIN HCL 250 MG CAP PO SCH ×3 (06:09→17:40)
[2023-05-01] MEDS: APRESOLINE INJ 20 MG VIAL IVP PRN ×2 (06:09→16:20)
[2023-05-01] MEDS ORDERED: CONSULT PHARMACY - POTASSIUM & MAGNESIUM XX SCH (07:00)
[2023-05-01] MEDS: BENTYL CAP 10 MG PO PRN ×2 (08:07→20:46)
[2023-05-01] MEDS: PROTONIX TAB 40 MG PO SCH ×2 (08:07→20:45)
[2023-05-01] MEDS: MAG-OX TAB PO SCH ×2 (08:07→09:19)
[2023-05-01] MEDS: INDERAL TAB 10 MG PO SCH ×2 (08:07→20:45)
[2023-05-01] MEDS: FLONASE NASAL SPRAY ENOSTRIL SCH (08:07)
[2023-05-01] MEDS: TAB-A-VITE PO SCH (08:07)
[2023-05-01] MEDS: LIBRIUM PO SCH ×4 (08:07→20:45)
[2023-05-01] MEDS ORDERED: K-DUR TAB 20 MEQ PO SCH (09:00)
[2023-05-01] MEDS: ROBITUSSIN DM PO PRN (17:43)
[2023-05-01] MEDS: LOMOTIL PO PRN (18:32)
[2023-05-01 20:51] VITALS: RESP 18
[2023-05-02] MEDS: APRESOLINE INJ 20 MG VIAL IVP PRN (00:12)
[2023-05-02] MEDS: VANCOMYCIN HCL 250 MG CAP PO SCH ×4 (01:45→17:36)
[2023-05-02] MEDS: FLAGYL TAB 500 MG PO SCH ×3 (02:30→17:36)
[2023-05-02] MEDS: NS 1,000 ML IV 1,000 ML IV SCH ×5 (02:45→17:37)
[2023-05-02 05:05] LABS: BASOPHILS % (AUTO) 0.4 % (0.2-1.0); EOSINOPHILS % (AUTO) 0.1 % (0.9-2.9); HEMATOCRIT 25.7 % (42.0-54.0); HEMOGLOBIN 8.6 g/dL (13.5-18.0); LYMPHOCYTES # (AUTO) 0.4 X10^3/uL (1.3-2.9); LYMPHOCYTES % (AUTO) 9.2 % (21.0-51.0); MEAN CORPUSCULAR HEMOGLOBIN 34.7 pg (27.0-34.0); MEAN CORPUSCULAR HGB CONC 33.3 g/dL (33.0-35.0); MEAN PLATELET VOLUME 8.2 fL (7.4-11.0); MONOCYTES # (AUTO) 0.1 x10^3/uL (0.3-0.8); MONOCYTES % (AUTO) 2.1 % (0.0-13.0); NEUTROPHILS % (AUTO) 88.2 % (42.0-75.0); PLATELET COUNT 192 X10^3/uL (150.0-450.0); RED BLOOD COUNT 2.47 X10^6/uL (4.7-6.0); WHITE BLOOD COUNT 4.5 X10^3/uL (3.6-10.0)
[2023-05-02 05:20] LABS: MAGNESIUM 1.2 mg/dL (2.0-2.9)
[2023-05-02 05:21] LABS: ALBUMIN 2.6 g/dL (3.4-5.0); CALCIUM 7.3 mg/dL (8.5-10.1); CARBON DIOXIDE 19.9 mmol/L (21-32); COR CA(FOR HYPOALB) 8.4 mg/dL (8.5-10.1); CREATININE 4.51 mg/dL (0.70-1.30); POTASSIUM 3.6 mmol/L (3.5-5.1); TOTAL PROTEIN 5.8 g/dL (6.4-8.2)
[2023-05-02] MEDS ORDERED: KLOR-CON PO SCH (09:00)
[2023-05-02] MEDS ORDERED: CONSULT PHARMACY - POTASSIUM & MAGNESIUM XX SCH (09:00)
[2023-05-02] MEDS: TAB-A-VITE PO SCH (09:52)
[2023-05-02] MEDS: FLONASE NASAL SPRAY ENOSTRIL SCH (09:52)
[2023-05-02] MEDS: MAG-OX TAB PO SCH ×4 (09:52→13:15)
[2023-05-02] MEDS: INDERAL TAB 10 MG PO SCH ×2 (09:53→20:52)
[2023-05-02] MEDS: LIBRIUM PO SCH ×4 (09:53→20:52)
[2023-05-02] MEDS: PROTONIX TAB 40 MG PO SCH ×2 (09:54→20:53)
[2023-05-02] MEDS: ROBITUSSIN DM PO PRN (10:07)
[2023-05-03] MEDS: VANCOMYCIN HCL 250 MG CAP PO SCH ×4 (00:39→12:40)
[2023-05-03] MEDS: NS 1,000 ML IV 1,000 ML IV SCH ×2 (00:41→09:28)
[2023-05-03] MEDS: FLAGYL TAB 500 MG PO SCH ×2 (01:25→10:20)
[2023-05-03 05:24] LABS: BASOPHILS % (AUTO) 0.5 % (0.2-1.0); EOSINOPHILS % (AUTO) 0.8 % (0.9-2.9); HEMATOCRIT 23.6 % (42.0-54.0); HEMOGLOBIN 7.7 g/dL (13.5-18.0); LYMPHOCYTES # (AUTO) 0.8 X10^3/uL (1.3-2.9); LYMPHOCYTES % (AUTO) 13.9 % (21.0-51.0); MEAN CORPUSCULAR HEMOGLOBIN 34.2 pg (27.0-34.0); MEAN CORPUSCULAR HGB CONC 32.8 g/dL (33.0-35.0); MEAN CORPUSCULAR VOLUME 104.3 fL (80.0-100.0); MEAN PLATELET VOLUME 8.2 fL (7.4-11.0); MONOCYTES # (AUTO) 0.7 x10^3/uL (0.3-0.8); MONOCYTES % (AUTO) 12.7 % (0.0-13.0); NEUTROPHILS # (AUTO) 4.2 x10^3/uL (2.2-4.8); NEUTROPHILS % (AUTO) 72.1 % (42.0-75.0); PLATELET COUNT 223 X10^3/uL (150.0-450.0); RED BLOOD COUNT 2.26 X10^6/uL (4.7-6.0); RED CELL DISTRIBUTION WIDTH 14.5 % (11.6-16.5); WHITE BLOOD COUNT 5.8 X10^3/uL (3.6-10.0)
[2023-05-03 05:30] LABS: ALANINE AMINOTRANSFERASE 88 Units/L (12-78); ALBUMIN 2.6 g/dL (3.4-5.0); ALKALINE PHOSPHATASE 40 Units/L (46-116); AMYLASE 195 Units/L (25-115); ASPARTATE AMINO TRANSFERASE 81 Units/L (15-37); BLOOD UREA NITROGEN 46 mg/dL (7-18); CALCIUM 7.5 mg/dL (8.5-10.1); CHLORIDE 110 mmol/L (98-107); COR CA(FOR HYPOALB) 8.6 mg/dL (8.5-10.1); GLUCOSE 100 mg/dL (65-99); POTASSIUM 3.3 mmol/L (3.5-5.1); SODIUM 143 mmol/L (136-145); TOTAL PROTEIN 5.5 g/dL (6.4-8.2); eGFR NON BLACK RACES 19 (>60)
[2023-05-03 08:56] VITALS: BP 177/92; PULSE 69; TEMP 98.3; O2SAT 98
[2023-05-03] MEDS: TAB-A-VITE PO SCH (10:20)
[2023-05-03] MEDS: FLONASE NASAL SPRAY ENOSTRIL SCH (10:20)
[2023-05-03] MEDS: LIBRIUM PO SCH ×2 (10:20→12:40)
[2023-05-03] MEDS: PROTONIX TAB 40 MG PO SCH (10:20)
[2023-05-03] MEDS: INDERAL TAB 10 MG PO SCH (10:20)
== END 2023-05-03 13:43 | disposition home health service (06) | DRG 439 ==
LOC: ICU 15:18 → ER 15:18 → OBSVTOIN 19:55 → ICU 21:01 → MED/SURG 05-01 17:59
PROVIDERS: ADMIT Internal Medicine; ATTEND Internal Medicine
DX: F41.8 Other specified anxiety disorders; E87.21 Acute metabolic acidosis; R06.02 Shortness of breath; I10 Essential (primary) hypertension; K85.90 Acute pancreatitis without necrosis or infection, unspecified; R45.1 Restlessness and agitation; F10.10 Alcohol abuse, uncomplicated; R26.89 Other abnormalities of gait and mobility; M62.82 Rhabdomyolysis; K21.9 Gastro-esophageal reflux disease without esophagitis; N17.8 Other acute kidney failure; A04.72 Enterocolitis due to Clostridium difficile, not specified as recurrent; N40.0 Benign prostatic hyperplasia without lower urinary tract symptoms